=== PATIENT | female | born 1955 | race Two or more races ===

== ENCOUNTER 2020-11-21 06:30 | Inpatient (IN) | payer MEDICARE, MEDICAID ==
[~2020-11-21] VITALS: Ht 157.5 cm; Wt 51.3 kg
[2020-11-21] VITALS (12 sets, daily range): BP systolic 125–172; BP diastolic 72–100
[2020-11-21] MEDS ORDERED: PROPOFOL 1,000 MG/100 ML VIAL As Ordered ONE ×2 (06:34→11:04)
[2020-11-21] MEDS ORDERED: MAGNESIUM SULFATE IN WATER 2GM 50ML BAG (40MG/ML) (FOR ER ONLY) As Ordered ONE (06:38)
[2020-11-21] MEDS ORDERED: ETOMIDATE INJ 20MG/10ML VIAL IV ONE (06:45)
[2020-11-21] MEDS ORDERED: SUCCINYLCHOLINE INJ 200 MG/10 ML VIAL (J0330) IV ONE (06:45)
[2020-11-21] MEDS: MAG SULF 1GM/100ML (MAG RUN) 1 GM in IV 1 EA IV SCH ×2 (07:00→07:45)
[2020-11-21 07:01] LABS: HEMATOCRIT 44.8 % (36.0-47.0); HEMOGLOBIN 13.9 g/dl (12.0-15.5); MEAN CORPUSCULAR HEMOGLOBIN 28.6 pg (27.0-33.0); MEAN CORPUSCULAR VOLUME 92.2 fl (80.0-96.0); PLATELET COUNT, AUTOMATED 367 10^3/uL (150-450); RED BLOOD COUNT 4.86 10^6/uL (4.00-5.40)
[2020-11-21 07:03] LABS: WHITE BLOOD COUNT 16.4 10^3/uL (4.0-10.0)
[2020-11-21] MEDS ORDERED: COMBIVENT RESPIMAT 100-20MCG INHALER 4GM INH ONE (07:05)
--- NOTE | 2020-11-21 07:13 | ECGEPIP ---
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
[2020-11-21 07:29] LABS: ATYPICAL LYMPH 12 % (0-5); EOSINOPHILS 5 % (0-3); LYMPHOCYTES 51 % (16-44); MONOCYTES 4 % (0-5); NEUTROPHILS 28 % (28-66)
[2020-11-21 07:30] LABS: ANISOCYTOSIS 1+; OVALOCYTES 1+; PLATELET ESTIMATE INCREASED (NORMAL); POIKILOCYTOSIS 1+
[2020-11-21 07:45] LABS: INR 1.02; PROTHROMBIN TIME 13.8 SECONDS (12.7-14.5)
[2020-11-21] MEDS: IPRATROPIUM 0.02% SOLN 0.5MG 2.5ML NEB NEB SCH ×4 (08:00→19:34)
[2020-11-21] MEDS: ALBUTEROL SULFATE 2.5 MG/0.5 ML INH NEB SOLN NEB SCH ×4 (08:00→19:33)
[2020-11-21] MEDS ORDERED: ISOVUE-370 76% 100ML VIAL As Ordered ONE (08:08)
--- NOTE | 2020-11-21 08:20 | REP ---
INDICATION: resp distress. COMPARISON: comparison chest x-ray June 20, 2018. TECHNIQUE: Portable upright AP chest radiograph. FINDINGS: Patient is status post extensive cervical spine fusion. A nasogastric tube is seen in place coursing into the distal stomach. Lower lumbar spine fusion hardware is also visible. EKG electrodes are seen. Endotracheal tube is seen in good position at the level of the transverse aorta. There is diffuse interstitial lung disease most compatible with fibrosis. The the interstitial markings are more prominent than on the 2019 prior study and some component of edema is difficult to exclude. The heart does not appear enlarged however. Pulmonary vasculature is not increased. No pleural effusion is seen. IMPRESSION: Endotracheal and nasogastric tubes in place. Diffuse interstitial lung disease, fibrosis versus edema. No focal infiltrate. <Electronically signed by Duncan Perez > 11/21/20 [id number]
--- NOTE | 2020-11-21 08:49 | REP ---
INDICATION: altered mental status. COMPARISON: Comparison CT study of the cervical spine is from November 27, 2012. TECHNIQUE: Helical scanning is acquired and overlapping 2 mm high resolution axial images were generated and reviewed at bone and soft tissue window settings. Coronal and sagittal multiplanar re-formations images are generated. FINDINGS: Patient is status post extensive cervical spine fusion. Multilevel cervical spine laminectomy. Fusion hardware is visible bilaterally and dorsally at each level from C2 to the 5th thoracic level. Ventral discectomy and fusion plating is seen across the C3-4 C4-5 C5-6 and C6-7 discs. These findings are unchanged. The patient has james tracheal and nasogastric tubes in place. The prevertebral soft tissues are otherwise unremarkable. The lung apices show thickening of the interlobular septa consistent with interstitial edema or interstitial lung disease. There is no evidence of fracture or traumatic subluxation. There is considerable spray artifact from the metallic components of the fusion hardware. IMPRESSION: Multilevel ventral cervical spine fusion, C3 through C7. Dorsal cervicothoracic fusion bilaterally C2 through T5. Cervical laminectomies at each level from C3 through C7. No traumatic abnormality seen. <Electronically signed by Duncan Perez > 11/21/20 0815
--- NOTE | 2020-11-21 08:49 | REP ---
INDICATION: altered mental status. COMPARISON: None. TECHNIQUE: CT brain performed in the axial plane. Coronal reconstruction images are performed. FINDINGS: There is mild atrophy. There is no midline shift or mass effect. Mild bilateral patchy hypodensities are seen in the periventricular white matter bilaterally likely representing chronic small vessel ischemic changes/gliosis. There is no acute intracranial hemorrhage or extra-axial fluid collection. Vascular calcifications are seen in the carotid siphons. The visualized paranasal sinuses and the mastoid air cells are well aerated with no abnormal opacification. IMPRESSION: Mild atrophy and probable chronic periventricular small vessel ischemic change/gliosis. No acute intracranial hemorrhage, midline shift or mass effect. <Electronically signed by Travon Salas > 11/21/20 [id number]
--- NOTE | 2020-11-21 08:59 | REP ---
INDICATION: altered mental status/hypoxia. COMPARISON: Comparison chest CT study May 15, 2019. TECHNIQUE: Contrast dose: 75 ML of Isovue [address] technique: Helical scanning is acquired and overlapping 1.5 mm and contiguous 3 mm axial images are reformatted. In addition, maximum intensity projection and multiplanar re-formation images are generated in sagittal and coronal imaging projections. FINDINGS: There is good opacification in the pulmonary arterial tree. There is no evidence of vessel cut off or filling defect to suggest pulmonary embolus. Homogeneous opacity is seen in the thoracic aorta. There is no evidence of aneurysm or dissection. There is no evidence of pleural or pericardial effusion. No hilar or mediastinal mass or adenopathy is observed. Lung window settings demonstrate scattered granulomatous pulmonary parenchymal calcifications. Dependent subsegmental atelectatic changes are seen in the lower lobes posteriorly and bilaterally. There is a diffuse new pattern of interstitial edema with smooth thickening of the interlobular septi throughout. There is peribronchial thickening diffusely as well. Mild fissural thickening is seen in the major fissure. These changes are new when compared with the May 15, 2019 study. They are most consistent with diffuse interstitial edema. There are 2 ill-defined nodular opacities in the left upper lobe of uncertain significance. There is mild four-chamber cardiomegaly. The hepatic segment of the IVC a reflux is with contrast opacified blood and there is some in the hepatic veins consistent with some right heart dysfunction. There is a very small amount of pleural fluid present bilaterally. In the upper abdomen, there are 2 small low-density lesions in the spleen measuring 1.2 and 1.5 cm in greatest diameter. One of these is visible in retrospect on the 2019 study. These may be small hemangiomas. Adrenal glands are normal. No liver mass lesion is apparent. The patient is status post cervicothoracic fusion with extensive hardware. Endotracheal tube is in good position. Nasogastric tube enters the left upper quadrant. IMPRESSION: No CT evidence of pulmonary embolus. Diffuse moderate interstitial edema pattern, mild four-chamber cardiomegaly and findings consistent with right heart dysfunction. Question CHF. Two small left upper lobe sub cm ill-defined nodules. <Electronically signed by Duncan Perez > 11/21/20 0811
[2020-11-21] MEDS ORDERED: ASPIRIN 81MG ENTERIC TABLET XX SCH (09:00)
[2020-11-21] MEDS ORDERED: lisinopriL 40 MG TAB NG SCH (09:00)
[2020-11-21] MEDS: propofoL 1,000 MG in IV 1 EA IV SCH ×3 (09:25→23:18)
[2020-11-21 09:45] LABS: BILIRUBIN,DIRECT 0.2 MG/DL (0.0-0.2); BILIRUBIN,TOTAL 0.6 MG/DL (0.2-1.0); CK-MB VALUE MASS 5.1 NG/ML (<3.6); GLOMERULAR FILTRATION RATE 59.1 (>45); MB/CK RELATIVE INDEX 3.49 (< OR =4); POTASSIUM SERUM 3.8 MEQ/L (3.5-5.1); THYROID STIMULATING HORMONE 0.746 uIU/ML (0.358-3.740); THYROXINE (T4) 9.5 UG/DL (4.5-12.0); TOTAL PROTEIN 6.1 GM/DL (6.4-8.2); TROPONIN I 0.51 NG/ML (< 0.10)
[2020-11-21] MEDS ORDERED: GABA-1171 PO (10:11)
[2020-11-21] MEDS ORDERED: FLUTISP NARES (10:11)
[2020-11-21] MEDS ORDERED: FOLI1TAB11 PO (10:11)
[2020-11-21] MEDS ORDERED: ADVA230A INH (10:11)
[2020-11-21] MEDS ORDERED: OXYC20TA2 PO (10:11)
[2020-11-21] MEDS ORDERED: TOPR25TA PO ×2 (10:11→11:14)
[2020-11-21] MEDS ORDERED: INCR1INH INH (10:11)
[2020-11-21] MEDS ORDERED: CLAR10CA3 PO (10:11)
[2020-11-21] MEDS ORDERED: ATOR1TAB21 PO (10:11)
[2020-11-21] MEDS ORDERED: LEXA1TAB PO (10:11)
[2020-11-21] MEDS ORDERED: LISI40TA4 PO (10:11)
[2020-11-21] MEDS ORDERED: POTA1TAB14 PO (10:11)
[2020-11-21] MEDS ORDERED: OMEP40CA4 PO (10:11)
[2020-11-21] MEDS ORDERED: LORA1TAB4 PO (10:11)
[2020-11-21] MEDS ORDERED: CLOP75TA2 PO (10:11)
[2020-11-21] MEDS ORDERED: AMLO1TAB24 PO (10:11)
[2020-11-21] MEDS ORDERED: VARE1TA PO (10:11)
[2020-11-21] MEDS ORDERED: PROAAER10 INH (10:11)
[2020-11-21] MEDS ORDERED: CHAN1PAK13 PO (11:14)
[2020-11-21] MEDS ORDERED: C-101TAB3 PO (11:14)
[2020-11-21] MEDS ORDERED: MAGN500T6 PO (11:14)
[2020-11-21] MEDS ORDERED: ASPI81TA26 PO (11:14)
[2020-11-21] MEDS ORDERED: CALC600T60 PO (11:17)
[2020-11-21] MEDS ORDERED: EXCETAB33 PO (11:17)
[2020-11-21] MEDS ORDERED: ONDA-83 PO (11:17)
[2020-11-21] MEDS ORDERED: VITA200021 PO (11:17)
[2020-11-21] MEDS ORDERED: HOME MED LIST COMPLETE! XX SCH (11:20)
[2020-11-21] MEDS ORDERED: LEXA5TAB13 PO (11:20)
--- NOTE | 2020-11-21 11:24 | HPEPDOC ---
[facility] Medical History & Physical Date of Admission Nov 21, 2020 Date of Service: Nov 21, 2020 Other Provider MOSES Fung Attending Physician: LUISITO JOHNSON MD History and Physical CHIEF COMPLAINT: Shortness of breath HISTORY OF PRESENT ILLNESS: This is a 65-year-old female with history of stress- induced cardiomyopathy, hypertension, hyperlipidemia, mild COPD, prior tobacco abuse, depression, chronic hypoxic respiratory failure on home oxygen who was brought into the EMS for shortness of breath. Patient is currently living with her son. Per her daughter report, while her son was out, patient call EMS around 4:30 in the morning complaining of shortness of breath. Upon arrival to the emergency department, patient was found to be profoundly hypoxic and altered. ABG with large AA gradient. Therefore, patient was emergently intubated in the emergency department. No other history was able to be obtained other than collateral from her daughter and records faxed from [facility]. Per daughter, patient has multiple recurrent hospital admission for cardiac and pulmonary issues. Her last hospital admission was back in May or June of this year. She did have stress induced cardiomyopathy back in Mar 2013. She did have a second presentation with stress-induced cardiomyopathy back in May 2019 in the setting of respiratory distress. She did have a subsequent cardiac catheterization in Jun 2019 which revealed normal clean coronaries with wall motion abnormality typical of stress-induced cardiomyopathy (apical ballooning). She did have a subsequent repeat echocardiogram done in Aug 2019 which show recovery of left ventricular ejection fraction with normal functioning left ventricle. Patient was kept on beta-braden, GENTRY inhibitor, Lasix 40 mg as needed with strict salt intake. Echocardiogram done back in Aug 2019 showed left ventricular ejection fraction of 50 to 55% with grade 1 diastolic dysfunction. There is evidence of mild to moderate aortic insufficiency. CVP is normal. Inferior vena cava collapsibility is more than 50%. There is mild mitral regurgitation with intact tricuspid valve. Previous spirometry with FVC 45%, FEV1 34% with normal FEV1 to FVC ratio. Upon arrival to the emergency department, she has slight leukocytosis with no bandemia. Basic metabolic panel are essentially within normal limits. proBNP is 1000. Lactic acid was elevated. Troponin was slightly elevated at 0.5. EKG with no ST-T wave changes other than LVH. There is no evidence of LBBB. Chest x-ray with increased cephalization of the vasculature. CT scan of the head show chronic vessel disease with no evidence of intracranial hemorrhage or subacute stroke. CT C-spine with multiple hardwares but no evidence of fracture. CT of the chest with angiography showed no evidence of acute pulmonary embolism but evidence of contrast reflux into the IVC. However there is evidence of dependent atelectasis in the lower lobe as well as increased markings of interlobular septa. Patient will be admitted to ICU for further management. PAST MEDICAL HISTORY: 1. Stress induced cardiomyopathy. 2. Hypertension. 3. Hyperlipidemia. 4. Prior tobacco smoker quit smoking back in June of this year 2020 5. Mild COPD 6. Scoliosis PAST SURGICAL HISTORY: 1. Appendectomy. 2. Cardiac catheterization in Jun 2019. 3. Colonoscopy in Aug 2014. 4. Hysterectomy 5. C-spine surgery with hardware placement 6. Dental extraction SOCIAL HISTORY: Patient was a prior smoker who smoke for [id number] history. She quit smoking back in May 2019. She had no history of alcohol use or illicit drug use. FAMILY HISTORY: Family history of lung cancer in her mother. Family history of myocardial infarction in her father who had VT at age 48. ALLERGIES: Please see below. REVIEW OF SYSTEMS: Review of system cannot be done as patient is currently intubated and sedated. HOME MEDICATIONS: Please see below. PHYSICAL EXAMINATION: VITAL SIGNS: Please see vital signs below GENERAL APPEARANCE: Patient is currently sedated and does not appear to be in any acute distress. HEENT: JVD. No cervical adenopathy CARDIOVASCULAR: S1, S2, S3 with no S4. Mild midsystolic murmur best heard in apical area. LUNGS: Bilateral rales. ABDOMEN: Soft with hypoactive bowel sounds. MUSCULOSKELETAL: No evidence of joint effusion or joint swelling. EXTREMITIES: Very minimal pitting edema of the lower extremity. No clubbing of the fingers NEUROLOGICAL: Cannot be assessed. PSYCHIATRIC: Cannot be assessed. LABORATORY DATA: See below. MICROBIOLOGY: Please see below. ASSESSMENT: This is a 65-year-old female with history of stress-induced cardiomyopathy, hypertension, hyperlipidemia, mild COPD, prior tobacco abuse, depression, chronic hypoxic respiratory failure on home oxygen who was brought into the EMS for shortness of breath. #Acute hypoxic respiratory failure secondary to cardiogenic pulmonary edema -Currently intubated on mechanical ventilator setting respiratory rate 18, tidal volume 320 mL, PEEP 7, FiO2 45%. Dramatic improvement of her gas exchange immediately after positive pressure ventilation which strongly indicate that this is a cardiogenic pulmonary edema. #Cardiogenic pulmonary edema -Lasix drip 5 mg/h started. Resume home GENTRY inhibitor and beta-braden. -Repeat echocardiogram ordered. Bedside echo/sonogram show severely depressed left ventricular function with mild to moderate mitral regurgitation. Left ventricule is globally hypokinetic. IVC is massively dilated. -Strict monitoring of ins and outs and electrolytes with ongoing diuresis. #Hypoxic encephalopathy -Intubated for airway protection. Will perform daily sedation holiday. #Lactic acidosis -Likely secondary to hypoxia. Will trend until lactate normalized. #Elevated troponin with no significant EKG change -Likely demand given no history of coronary artery disease on cardiac catheterization done little over a year ago. Repeat echo order. We will trend troponin. She has been restarted back on aspirin, beta-braden, Lipitor. #Hypertension, hyperlipidemia, mild COPD not in exacerbation, depression -Restarted on her home medications. DVT prophylaxis: Heparin subcutaneous GI prophylaxis: Pantoprazole Diet: N.p.o. Critical care time excluding procedures 70 minutes. Vital Signs Vital Signs Date Time Temp Pulse Resp B/P (MAP) Pulse Ox O2 Delivery O2 Flow Rate FiO2 11/21/20 09:20 117/73 (88) 11/21/20 09:15 98.1 91 18 96 Ventilator 15.0 60 Laboratory Data Labs 24H Laboratory Tests 2 11/21/20 06:40: POC Glucose (Misc Panel) 305H, POC Sodium (Misc Panel) 139, POC Potassium (Misc Panel) 4.1, POC Chloride (Misc Panel) 101, POC Total CO2 (Misc Panel) 26.0, POC Blood Urea Nitrogen (Misc Panel 13, POC Ionized Calcium (Misc Panel) 4.5, POC Creatinine (Misc Panel) 1.2, POC Hematocrit (Misc Panel) 48.0 11/21/20 06:47: POC Lactate (Misc Panel) 4.41*H 11/21/20 06:53: Neutrophils (%) (Auto) , Nucleated Red Blood Cells % (auto) 0.0, Neutrophils 28, Lymphocytes (Manual) 51H, Monocytes (Manual) 4, Eosinophils (Manual) 5H, Atypical Lymphocytes 12H, Poikilocytosis 1+, Anisocytosis 1+, Ovalocytes 1+, Platelet Estimate INCREASED, Prothrombin Time 13.8, Prothromb Time International Ratio 1.02, Lactic Acid Level 4.8*H 11/21/20 06:54: POC Saturated Percent O2 (Misc) 80L 11/21/20 07:02: POC pH (Misc Panel) 7.350, POC Base Excess (Misc Panel) 1.0, POC Saturated Percent O2 (Misc) 94L, POC pO2 (Misc Panel) 76.0L, POC pCO2 (Misc Panel) 48.9H, POC HCO3 (Misc Panel) 27.0H, POC Total CO2 (Misc Panel) 28.0H 11/21/20 07:52: POC pH (Misc Panel) 7.373, POC Base Excess (Misc Panel) 2.0, POC Saturated Percent O2 (Misc) 83L, POC pO2 (Misc Panel) 49.0*L, POC pCO2 (Misc Panel) 47.2H, POC HCO3 (Misc Panel) 27.5H, POC Total CO2 (Misc Panel) 29.0H 11/21/20 07:57: POC Total CO2 (Misc Panel) 28.0H, POC Glucose (Misc Panel) 222H, POC Sodium (Misc Panel) 132L, POC Potassium (Misc Panel) 4.5, POC Chloride (Misc Panel) 100, POC Blood Urea Nitrogen (Misc Panel 13, POC Ionized Calcium (Misc Panel) 4.0L, POC Creatinine (Misc Panel) 1.2, POC Hematocrit (Misc Panel) 41.0 11/21/20 09:08: Anion Gap 5L, Glomerular Filtration Rate 59.1, Calcium Level 8.0L, Total Bilirubin 0.6, Direct Bilirubin 0.2, Aspartate Amino Transf (AST/SGOT) 26, Alanine Aminotransferase (ALT/SGPT) 21, Alkaline Phosphatase 109, Total Creatine Kinase 146, Creatine Kinase MB 5.1H, Creatine Kinase MB Relative Index 3.49, Troponin I 0.51H, GJ-Lyd-T-Type Natriuretic Peptide 1055H, Total Protein 6.1L, Albumin 3.0L, Albumin/Globulin Ratio 1.0L, Thyroid Stimulating Hormone (TSH) 0 .746, Thyroxine (T4) 9.5 CBC/BMP Laboratory Tests 11/21/20 06:53 11/21/20 09:08 Microbiology Microbiology 11/21/20 Respiratory Virus Panel (PCR) ([facility]) - Final, Complete 11/21/20 Blood Culture, Received Pending 11/21/20 Blood Culture, Received Pending Home Medications Scheduled Amlodipine Besylate (Amlodipine Besylate) 5 Mg Tablet, 2.5 MG PO DAILY Atorvastatin Calcium (Atorvastatin Calcium) 20 Mg Tablet, 20 MG PO DAILY Clopidogrel Bisulfate (Clopidogrel) 75 Mg Tablet, 75 MG PO DAILY Escitalopram Oxalate (Lexapro) 10 Mg Tablet, 10 MG PO DAILY Fluticasone Propion/Salmeterol (Advair Hfa 230-21 Mcg Inhaler) 12 Gm Hfa.aer.ad, 2 PUFF INH BID Fluticasone Propionate (Fluticasone Propionate) 16 Gm [place].susp, 1 SPRAY NARES DAILY Folic Acid (Folic Acid) 1 Mg Tablet, 1 MG PO DAILY Gabapentin (Gabapentin) 100 Mg Capsule, 100 MG PO TID Lisinopril (Lisinopril) 40 Mg Tablet, 40 MG PO DAILY Loratadine (Claritin) 10 Mg Capsule, 10 MG PO DAILY Metoprolol Succinate (Toprol Xl) 25 Mg Tab.er.24h, 50 MG PO DAILY Omeprazole (Omeprazole) 40 Mg Capsule.dr, 40 MG PO BID Potassium Chloride (Potassium Chloride) 20 Meq Tablet.er, 20 MEQ PO DAILY Umeclidinium [place] (Incruse Ellipta) 62.5 Mcg Blst.w.dev, 1 PUFF INH DAILY Scheduled PRN Albuterol Sulfate (Proair Hfa) 8.5 Gm Hfa.aer.ad, 2 PUFF INH QID PRN for SHORTNESS OF BREATH Lorazepam (Lorazepam) 1 Mg Tablet, 1 MG PO QHS PRN for INSOMNIA Oxycodone Hcl (Oxycodone HCl) 20 Mg Tablet, 20 MG PO Q4H PRN for PAIN LEVEL 5-10 Allergies Coded Allergies: Cephalosporins (Verified Allergy, Intermediate, 11/21/20) Penicillins (Verified Allergy, Intermediate, 11/21/20) buspirone (Verified Allergy, Intermediate, 11/21/20) codeine (Verified Allergy, Intermediate, 11/21/20) varenicline (Verified Allergy, Intermediate, 11/21/20) A-FIB/CHADSVASC A-FIB History Current/History of A-Fib/PAF?: No LUISITO JOHNSON MD Nov 21, 2020 11:24
[2020-11-21] MEDS: CHLORHEXIDINE GLUCONATE 0.12 % 15ML UDC (PERIDEX ORAL RINSE) MT SCH ×2 (13:14→21:10)
[2020-11-21] MEDS ORDERED: FUROSEMIDE injection 250 MG in D5W 225 ML IV SCH (14:00)
[2020-11-21] MEDS: ASPIRIN 81 MG CHEW TABLET NG SCH (14:01)
[2020-11-21] MEDS: PANTOPRAZOLE 40MG VIAL (C9113 PER 1) IV SCH (14:02)
[2020-11-21] MEDS: CLOPIDOGREL 75 MG TAB NG SCH (14:02)
[2020-11-21] MEDS: HEPARIN SOD (PORCINE) 5000UNITS/ML 1ML VIAL/SYRINGE SC SCH ×2 (14:02→22:05)
[2020-11-21] MEDS ORDERED: SUCCINYLCHOLINE 100 MG/5 ML SYRINGE (J0330) ONE (14:15)
[2020-11-21] MEDS ORDERED: ETOMIDATE INJ 20MG/10ML VIAL ONE (14:15)
[2020-11-21 17:38] LABS: BLOOD UREA NITROGEN 10 MG/DL (7-18); CALCIUM LEVEL 8.9 MG/DL (8.8-10.2); CARBON DIOXIDE LEVEL 25 MEQ/L (21-32); CHLORIDE LEVEL 103 MEQ/L (98-107); CREATININE FOR GFR 0.77 MG/DL (0.55-1.30); GLOMERULAR FILTRATION RATE > 60.0 (>45); GLUCOSE, FASTING 145 MG/DL (70-100); MAGNESIUM LEVEL 2.2 MG/DL (1.8-2.4); POTASSIUM SERUM 3.3 MEQ/L (3.5-5.1); SODIUM LEVEL 138 MEQ/L (136-145)
[2020-11-21] MEDS ORDERED: KCL 20MEQ IN 100ML SWI (KRUN) 20 MEQ in IV 1 EA IV ONE ×2 (17:40)
[2020-11-21] MEDS ORDERED: POTASSIUM CHLORIDE 10% LIQ 20 MEQ/15 ML UDC NG ONE (17:40)
[2020-11-21] MEDS: KCL 10MEQ/100ML SWI (KRUN) 10 MEQ in IV 1 EA IV SCH ×2 (18:36→19:46)
[2020-11-21] MEDS ORDERED: ATORVASTATIN 20 MG TAB NG SCH (21:00)
[2020-11-21] MEDS: ESCITALOPRAM OXALATE 5MG TABLET (LEXAPRO) NG SCH (21:10)
[2020-11-21] MEDS: METOPROLOL TART 50 MG TAB NG SCH (21:12)
[2020-11-22] VITALS (30 sets, daily range): BP systolic 97–160; BP diastolic 52–92
[2020-11-22 00:57] LABS: BLOOD UREA NITROGEN 13 MG/DL (7-18); CALCIUM LEVEL 9.4 MG/DL (8.8-10.2); CARBON DIOXIDE LEVEL 24 MEQ/L (21-32); CHLORIDE LEVEL 98 MEQ/L (98-107); CREATININE FOR GFR 0.98 MG/DL (0.55-1.30); GLOMERULAR FILTRATION RATE > 60.0 (>45); GLUCOSE, FASTING 176 MG/DL (70-100); MAGNESIUM LEVEL 2.1 MG/DL (1.8-2.4); POTASSIUM SERUM 4.2 MEQ/L (3.5-5.1); SODIUM LEVEL 133 MEQ/L (136-145)
[2020-11-22] MEDS: HEPARIN SOD (PORCINE) 5000UNITS/ML 1ML VIAL/SYRINGE SC SCH (05:55)
[2020-11-22] MEDS: propofoL 1,000 MG in IV 1 EA IV SCH ×4 (05:56→23:12)
[2020-11-22 06:20] LABS: HEMATOCRIT 47.1 % (36.0-47.0); HEMOGLOBIN 15.7 g/dl (12.0-15.5); MEAN CORPUSCULAR HEMOGLOBIN 28.5 pg (27.0-33.0); MEAN CORPUSCULAR HGB CONC 33.3 g/dl (32.0-36.5); MEAN CORPUSCULAR VOLUME 85.5 fl (80.0-96.0); PLATELET COUNT, AUTOMATED 415 10^3/uL (150-450); RED BLOOD COUNT 5.51 10^6/uL (4.00-5.40)
[2020-11-22 06:42] LABS: ATYPICAL LYMPH 5 % (0-5); LYMPHOCYTES 11 % (16-44); MONOCYTES 14 % (0-5); NEUTROPHILS 70 % (28-66)
[2020-11-22 06:43] LABS: PLATELET ESTIMATE NORMAL (NORMAL); POIKILOCYTOSIS 1+
[2020-11-22 06:46] LABS: ALBUMIN 3.8 GM/DL (3.2-5.2); ALT/SGPT 22 U/L (12-78); BLOOD UREA NITROGEN 15 MG/DL (7-18); CALCIUM LEVEL 9.4 MG/DL (8.8-10.2); CARBON DIOXIDE LEVEL 25 MEQ/L (21-32); CHLORIDE LEVEL 97 MEQ/L (98-107); CREATININE FOR GFR 0.89 MG/DL (0.55-1.30); GLOMERULAR FILTRATION RATE > 60.0 (>45); GLUCOSE, FASTING 146 MG/DL (70-100); POTASSIUM SERUM 3.5 MEQ/L (3.5-5.1); SODIUM LEVEL 134 MEQ/L (136-145); TOTAL PROTEIN 7.4 GM/DL (6.4-8.2)
[2020-11-22] MEDS: ALBUTEROL SULFATE 2.5 MG/0.5 ML INH NEB SOLN NEB SCH ×4 (07:20→19:42)
[2020-11-22] MEDS: IPRATROPIUM 0.02% SOLN 0.5MG 2.5ML NEB NEB SCH ×4 (07:21→19:42)
[2020-11-22] MEDS: PANTOPRAZOLE 40MG VIAL (C9113 PER 1) IV SCH (08:24)
[2020-11-22] MEDS: ATORVASTATIN 20 MG TAB PO SCH (08:25)
[2020-11-22] MEDS: CLOPIDOGREL 75 MG TAB NG SCH (08:25)
[2020-11-22] MEDS: CHLORHEXIDINE GLUCONATE 0.12 % 15ML UDC (PERIDEX ORAL RINSE) MT SCH ×2 (08:25→20:28)
[2020-11-22] MEDS: METOPROLOL TART 50 MG TAB NG SCH (08:26)
[2020-11-22] MEDS: ASPIRIN 81 MG CHEW TABLET NG SCH (08:26)
[2020-11-22] MEDS: MIDAZOLAM INJ 2MG/2ML VIAL (J2250 PER 1MG) IV PRN ×4 (08:29→22:30)
[2020-11-22] MEDS ORDERED: amLODIPine 5 MG TAB PO SCH (09:00)
[2020-11-22] MEDS ORDERED: ENOXAPARIN 80MG/0.8ML SYRINGE (J1650 PER 10MG) SC SCH (10:00)
--- NOTE | 2020-11-22 11:00 | ECHO ---
ECHOCARDIOGRAM DATE OF PROCEDURE: 11/21/2020 Age: 65 Gender: Female REFERRING PHYSICIAN: Dr. Nathan Clark PATIENT LOCATION: Room 3222 REASON FOR THE ECHOCARDIOGRAM: Heart failure MEASUREMENTS: IVS 1.1 cm LV 4.2 cm LVPW 1.1 cm DIANNA 3.5 cm Aorta 2.5 cm IVC 1.8 cm DOPPLER MEASUREMENT Peak velocity across the aortic valve 1.7 m/s Peak velocity across the LVOT 0.99 m/s Peak gradient across the aortic valve 11 mmHg Mean gradient across the aortic valve 5 mmHg Mitral E 0.89 Mitral A 0.39 with a ratio of 2.5 Maximum tricuspid valve velocity 3.9 m/sec 2D COMMENTS: 1. Subjectively mildly dilated left ventricle with severe global hypokinesis. The estimated left ventricular systolic ejection fraction is 20-25%. 2. The left atrium appeared to be mildly enlarged as well as the right atrium. Normal right ventricle. 3. The atrial septum appeared to be normal without evidence of defect or shunt. 4. Normal aortic root. 5. No pericardial effusion seen. 6. Mildly calcified aortic valve with normal leaflet excursion. Mildly calcified mitral annulus with normal anterior mitral valve leaflet motion. Normal tricuspid valve and pulmonic valve. The proximal pulmonary artery branches were not well visualized. 7. The inferior vena cava is normal in size, central venous pressure maybe normal. DOPPLER: It detects mild to moderate aortic regurgitation, moderate to severe mitral regurgitation and moderately severe tricuspid regurgitation. The calculated pulmonary artery systolic pressure varies between 60-70 mmHg. Abnormal relaxation pattern was noted across the mitral valve annulus, consistent with features of grade 2 left ventricular diastolic dysfunction. IMPRESSION: 1. Severe global left ventricular systolic dysfunction with global hypokinesis. There are some features of grade 2 left ventricular diastolic dysfunction, left ventricular end diastolic pressure might be elevated. 3. Aortic valve sclerosis with mild to moderate aortic regurgitation. 4. Mitral annulus calcification with moderately severe mitral regurgitation. Specifically the left atrium appeared to be mildly enlarged. 5. Moderately severe tricuspid regurgitation with moderately severe pulmonary hypertension. Specifically the right atrium appeared to be mildly enlarged. 7. Global longitudinal strain was calculated at -10.8%. 8. Negative Bubble study for intracardiac shunt. MTDD
--- NOTE | 2020-11-22 11:41 | IPNPDOC ---
Subjective Date Seen The patient was seen on 11/22/20. Subjective Chief Complaint/HPI Patient remains intubated. 1 coming off sedation, patient tracks people with her eyes and move 4 extremities but she does not follow any purposeful command. General: Reports: ROS Unobtainable Objective Physical Examination General Exam: Positive: No Acute Distress Eye Exam: Positive: Conjunctiva & lids normal; Negative: Sclera icteric ENT Exam: Positive: Atraumatic Neck Exam: Positive: Supple, JVD Chest Exam: Positive: Normal air movement, Rales Heart Exam: Positive: Tachycardic, Murmurs Abdomen Exam: Positive: Normal bowel sounds, Soft; Negative: Tenderness Extremity Exam: Negative: Clubbing, Cyanosis, Edema Skin Exam: Positive: Nl turgor and temperature; Negative: Rash Assessment /Plan Assessment This is a 65-year-old female with history of stress-induced cardiomyopathy, hypertension, hyperlipidemia, mild COPD, prior tobacco abuse, depression, chronic hypoxic respiratory failure on home oxygen who was brought into the EMS for shortness of breath. Plan/VTE VTE Prophylaxis Ordered?: Yes Plan #Acute hypoxic respiratory failure secondary to cardiogenic pulmonary edema -Currently intubated on mechanical ventilator setting respiratory rate 18, tidal volume 320 mL, PEEP 7, FiO2 21%. Dramatic improvement of her gas exchange immediately after positive pressure ventilation which strongly indicate that this is a cardiogenic pulmonary edema. #Cardiogenic pulmonary edema -She was previously on Lasix drip with good response to diuresis. She may 3 L over 24 hours. Aggressive electrolyte repletion. We will hold off further diuresis today as her gas exchange is very good. #Hypoxic encephalopathy -Intubated for airway protection. Will perform daily sedation holiday. #Lactic acidosis -Likely secondary to hypoxia. Lactate has normalized. #Type II [place] -Likely demand given no history of coronary artery disease on cardiac catheterization done little over a year ago. Repeat echo with estimated EF of 20 to 25%. There is a mild to moderate MR and TR. There is also significant A I. We will continue with aspirin, Lipitor, beta-braden. Dose of metoprolol will be increased if her blood pressure can tolerate. She will be started on Entresto in the near future. We will continue to trend troponin. We will continue with medical management. #Hypertension, hyperlipidemia, mild COPD not in exacerbation, depression -Restarted on her home medications. #Hypokalemia secondary to diuresis -Repleted DVT prophylaxis: Enoxaparin subcutaneous GI prophylaxis: Pantoprazole Diet: N.p.o. Critical care time excluding procedures 45 minutes. Disposition continue icu care. VS, I&O, 24H, Fishbone Vital Signs/I&O Vital Signs Date Time Temp Pulse Resp B/P (MAP) Pulse Ox O2 Delivery O2 Flow Rate FiO2 11/22/20 10:00 91 28 102/52 (69) 95 Ventilator 21 11/22/20 08:00 98.7 11/22/20 00:00 30.0 I&O- Last 24 Hours up to 6 AM 11/22/20 06:00 Intake Total 767.0 ml Output Total 3370 ml Balance -2603.0 ml Laboratory Data 24H LABS Laboratory Tests 2 11/21/20 11:49: Lactic Acid Level 1.6, Troponin I 0.65#H 11/21/20 12:46: Lactic Acid Followup at 4 Hours 1.3 11/21/20 16:52: Anion Gap 10, Glomerular Filtration Rate > 60.0, Calcium Level 8.9, Magnesium Level 2.2 11/22/20 00:10: Anion Gap 11, Glomerular Filtration Rate > 60.0, Calcium Level 9.4, Magnesium Level 2.1 11/22/20 04:58: Neutrophils (%) (Auto) , Nucleated Red Blood Cells % (auto) 0.0, Neutrophils 70H, Lymphocytes (Manual) 11L, Monocytes (Manual) 14H, Atypical Lymphocytes 5, Poikilocytosis 1+, Platelet Estimate NORMAL, Anion Gap 12, Glomerular Filtration Rate > 60.0, Calcium Level 9.4, Total Bilirubin 1.0#, Aspartate Amino Transf (AST/SGOT) 37, Alanine Aminotransferase (ALT/SGPT) 22, Alkaline Phosphatase 116, Troponin I 2.31#*H, Total Protein 7.4#, Albumin 3.8#, Albumin/Globulin Ratio 1.1L CBC/BMP Laboratory Tests 11/21/20 16:52 11/22/20 00:10 11/22/20 04:58 Microbiology Microbiology 11/21/20 Respiratory Virus Panel (PCR) ([facility]) - Final, Complete 11/21/20 Blood Culture - Preliminary, Resulted No growth after 24 hours . All specim... 11/21/20 Blood Culture - Preliminary, Resulted No growth after 24 hours . All specim... LUISITO JOHNSON MD Nov 22, 2020 11:41
[2020-11-22] MEDS ORDERED: METOPROLOL TART 25 MG TABLET FT ONE (12:45)
--- NOTE | 2020-11-22 12:56 | IPN ---
PROGRESS NOTE DATE: 11/22/2020 TIME: 11:[address] Almaraz covering for the cardiology service of Dr. Dale Davies (weekend coverage). The patient has been seen in consultation earlier this week by Dr. Dale Davies. At the present time, Dr. Davies's written consult is not currently available in the electronic medical record for my review. Neither is the patient's echocardiogram, Doppler report available in the current electronic medical record for my review. The patient is currently intubated, sedated and ventilated and no history could be obtained from the patient for that reason. History was obtained from the patient's current EMR. This 65-year-old woman is known to have takotsubo cardiomyopathy, systemic hypertension, hyperlipidemia, COPD, prior cigarette smoking, chronic hypoxic respiratory failure on home O2. She was brought to the emergency room by EMS 11/21/2020 with shortness of breath and was in respiratory failure. She was intubated and ventilated and placed on ICU status. Her ECG showed some nonspecific ST abnormalities and sinus tachycardia, 11/21/2020 at 6:33 a.m. Serial troponins were ordered. Her initial troponin was slightly elevated at 0.5. Troponin I this morning was 2.31. I was called by the nurse looking after the patient that the patient's troponin I was 2.31 this morning and that the computer read of the electrocardiogram had reported a septal infarct, age undetermined, a T wave abnormality, consider inferior wall ischemia. I was therefore asked by the nurse to be reassess this patient with regards to cardiology care. According to the history of present illness from the patient's current admission, the patient has had multiple recurrent hospitalizations for cardiac and pulmonary issues. She was diagnosed with stress-induced cardiomyopathy March, and had a second presentation of stress-induced cardiomyopathy, May, in the setting of respiratory stress. She had a cardiac catheterization, June, which showed angiographically normal coronary arteries with wall motion abnormality (apical ballooning) consistent with stress-induced cardiomyopathy. She had a repeat echocardiogram, August, showing recovery of LV systolic function. LVEF of 50-55% with grade I LV diastolic dysfunction. At that time, there was also mild-moderate aortic valve regurgitation, mild mitral regurgitation. The patient's current medications in the hospital consist of albuterol nebs, amlodipine 5 mg b.i.d., aspirin 81 mg daily, atorvastatin 80 mg daily, clopidogrel 25 mg daily, Lovenox 50 mg subcu q.12h, Lexapro 5 mg h.s., Atrovent nebulizers q.i.d., metoprolol tartrate 50 mg b.i.d., midazolam as needed for agitation, Protonix 40 mg IV daily, Propofol IV. PHYSICAL EXAMINATION: Unresponsive woman who appears to be normal body weight who is currently intubated and ventilated and sedated. Height 60 inches, weight 51.2 kilograms, BMI 20.6. Presence of orogastric tube and NG tube. Jugular venous pulsations appear to be at 3 cm with the patient supine. Lungs murray were clear with good breath sound intensity with ventilator breaths. No crackles. No wheezes appreciated. Carotids normal in volume and contour and without bruits. First and second heart sounds were normal. No S3, S4, or murmurs appreciated. Assessment for heart sounds are somewhat difficult due to breath sounds and the ventilator. Abdomen was soft, nontender with normal bowel sounds. No peripheral edema. Pedal pulses normal. Electrocardiogram 11/22/2020 at 7:08 a.m. shows sinus tachycardia, nonspecific ST-T abnormalities, LVH by voltages. Overall no significant change in comparison to the EKG 11/21/2020 at 6:33 a.m. Portable upright AP chest x-ray 11/21/2020 was reported to show endotracheal and nasogastric tubes in place. Diffuse interstitial lung disease, fibrosis versus edema. No focal infiltrate. Laboratory work, 11/22/2020 shows WBC 27.0, hemoglobin `5.7. hematocrit 47.1, platelets 415. Laboratory work 11/21/2020 at 9:08 a.m.: CPK 146, CPK-MB 5.1, CPK index 3.49, troponin I 0.51, NT-proBNP 1055, albumin 3.0. Total protein low at 6.1. TSH 0.746, T4 9.5. Laboratory work 11/21/2020 at 11:49 a.m. showed troponin I 0.65. Laboratory work 11/21/2020 at 6:53 a.m. showed lactic acid 4.8. Laboratory work 11/22/2020 at 4:58 a.m.: Sodium 134, potassium 3.5, chloride 97, CO2 25, BUN 15, creatinine 0.89, estimated GFR greater than 60, glucose 146, albumin 3.8, total protein 7.4. Troponin I 2.31. ASSESSMENT AND RECOMMENDATIONS: 1. Recurrent episodes of takotsubo cardiomyopathy, perhaps related to recurrent acute respiratory failure. Awaiting results of the patients' echocardiogram Doppler from this hospitalization to be posted into the EMR. Patient has evidence of heart failure with elevated NT-proBNP. At the moment, she appears to be compensated. Blood pressure this morning was mildly low. Due to mildly low blood pressure, I have discontinued amlodipine. As her blood pressure improves, I would like to advance the dosage of metoprolol. Her last dose of lisinopril was given 11/21/2020 at 1401 hours. If the patient's blood pressure improves off of lisinopril and if her LV systolic function is below 60%, then I would like to introduce Entresto. 2. Type 2 NSTEMI. This patient had previous cardiac catheterization which currently showed normal coronary arteries and findings consistent with takotsubo cardiomyopathy. I believe this patient's small rise in the troponin I is a secondary phenomena rather than coronary disease. As such, I recommend discontinuation of Plavix. I would not send the patient for repeat cardiac catheterization at this point because I believe that she has type II NSTEMI. 3. Systemic retention. Blood pressure is mildly low at present. As noted above, I have discontinued amlodipine. Lisinopril has already been stopped. As her blood pressure improves, my plan is to escalate the dosage of metoprolol and possibly introduce Valsartan (the addition of Entresto). 4. Abnormal ECG. ECG as described above. 5. Prior documentation of mild-moderate aortic regurgitation (nonrheumatic). We are awaiting the patient's echocardiography Doppler report from this hospitalization to be posted into the MR for my review. 6. Heart failure, unspecified. As per takotsubo cardiomyopathy category above.
--- NOTE | 2020-11-22 16:57 | ECGEPIP ---
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 Overall no significant change compared with 11/21/2020. Electronically Signed on 11-22-2020 16:56:31 EDT by Ricco Almaraz
[2020-11-22] MEDS: fentaNYL 100 MCG/2 ML INJECTION (J3010) IV PRN ×2 (17:26→20:31)
[2020-11-22] MEDS: ESCITALOPRAM OXALATE 5MG TABLET (LEXAPRO) NG SCH (20:28)
[2020-11-22] MEDS: METOPROLOL TART 25 MG TABLET GT SCH (20:30)
[2020-11-23] VITALS (77 sets, daily range): BP systolic 75–196; BP diastolic 43–87
[2020-11-23 03:28] LABS: HEMATOCRIT 45.7 % (36.0-47.0); HEMOGLOBIN 15.2 g/dl (12.0-15.5); MEAN CORPUSCULAR HEMOGLOBIN 28.1 pg (27.0-33.0); MEAN CORPUSCULAR HGB CONC 33.3 g/dl (32.0-36.5); MEAN CORPUSCULAR VOLUME 84.5 fl (80.0-96.0); PLATELET COUNT, AUTOMATED 376 10^3/uL (150-450); RED BLOOD COUNT 5.41 10^6/uL (4.00-5.40)
[2020-11-23 03:31] LABS: WHITE BLOOD COUNT 26.2 10^3/uL (4.0-10.0)
[2020-11-23] MEDS: propofoL 1,000 MG in IV 1 EA IV SCH ×3 (04:00→23:09)
[2020-11-23 04:14] LABS: ALBUMIN 3.3 GM/DL (3.2-5.2); ALT/SGPT 18 U/L (12-78); BLOOD UREA NITROGEN 24 MG/DL (7-18); CALCIUM LEVEL 8.5 MG/DL (8.8-10.2); CARBON DIOXIDE LEVEL 25 MEQ/L (21-32); CHLORIDE LEVEL 95 MEQ/L (98-107); CREATININE FOR GFR 0.97 MG/DL (0.55-1.30); GLOMERULAR FILTRATION RATE > 60.0 (>45); GLUCOSE, FASTING 118 MG/DL (70-100); POTASSIUM SERUM 3.7 MEQ/L (3.5-5.1); SODIUM LEVEL 132 MEQ/L (136-145); TOTAL PROTEIN 6.7 GM/DL (6.4-8.2); TROPONIN I 0.99 NG/ML (< 0.10)
[2020-11-23 04:18] LABS: ATYPICAL LYMPH 4 % (0-5); LYMPHOCYTES 13 % (16-44); MONOCYTES 13 % (0-5); NEUTROPHILS 70 % (28-66); PLATELET ESTIMATE NORMAL (NORMAL)
[2020-11-23 04:19] LABS: POIKILOCYTOSIS 1+
[2020-11-23] MEDS: fentaNYL 100 MCG/2 ML INJECTION (J3010) IV PRN ×3 (04:51→15:40)
[2020-11-23] MEDS: IPRATROPIUM 0.02% SOLN 0.5MG 2.5ML NEB NEB SCH ×4 (07:14→19:39)
[2020-11-23] MEDS: ALBUTEROL SULFATE 2.5 MG/0.5 ML INH NEB SOLN NEB SCH ×4 (07:14→19:39)
[2020-11-23] MEDS: CHLORHEXIDINE GLUCONATE 0.12 % 15ML UDC (PERIDEX ORAL RINSE) MT SCH ×2 (08:09→20:39)
[2020-11-23] MEDS: PANTOPRAZOLE 40MG VIAL (C9113 PER 1) IV SCH (08:10)
[2020-11-23] MEDS: ASPIRIN 81 MG CHEW TABLET NG SCH (08:10)
[2020-11-23] MEDS: ENTRESTO 24-26MG TABLET (SACUBITRIL/VALSARTAN) PO SCH ×2 (08:10→21:57)
[2020-11-23] MEDS: ENOXAPARIN 40MG/0.4ML SYRINGE (J1650 PER 10MG) SC SCH (08:10)
[2020-11-23] MEDS: ATORVASTATIN 20 MG TAB PO SCH (08:11)
[2020-11-23] MEDS: METOPROLOL TART 25 MG TABLET GT SCH (08:12)
[2020-11-23] MEDS ORDERED: MILRINONE/DEXTROSE 20 MG in IV 1 EA IV SCH (11:15)
[2020-11-23] MEDS: MIDAZOLAM INJ 2MG/2ML VIAL (J2250 PER 1MG) IV PRN ×5 (11:33→17:52)
[2020-11-23] MEDS ORDERED: NOREPINEPHRINE BITARTRATE 8 MG in D5W 492 ML IV SCH (14:00)
--- NOTE | 2020-11-23 14:41 | IPNPDOC ---
Subjective Date Seen The patient was seen on 11/23/20. Subjective Chief Complaint/HPI Patient remained intubated. While off sedation for many hours, she does not follow any meaningful commands. She opens her eyes, gag and cough and staring blank. General: Reports: ROS Unobtainable Objective Physical Examination General Exam: Positive: No Acute Distress Eye Exam: Positive: Conjunctiva & lids normal; Negative: Sclera icteric ENT Exam: Positive: Atraumatic Neck Exam: Positive: Supple Chest Exam: Positive: Normal air movement, Rales Heart Exam: Positive: Tachycardic, Murmurs Abdomen Exam: Positive: Normal bowel sounds, Soft; Negative: Tenderness Extremity Exam: Negative: Clubbing, Cyanosis, Edema Skin Exam: Positive: Nl turgor and temperature; Negative: Rash Assessment /Plan Assessment This is a 65-year-old female with history of stress-induced cardiomyopathy, hypertension, hyperlipidemia, mild COPD, prior tobacco abuse, depression, chronic hypoxic respiratory failure on home oxygen who was brought into the EMS for shortness of breath. She was intubated for cardiogenic pulmonary edema and admitted to ICU. Plan/VTE VTE Prophylaxis Ordered?: Yes Plan #Acute hypoxic respiratory failure secondary to cardiogenic pulmonary edema -Currently intubated on mechanical ventilator setting respiratory rate 18, tidal volume 320 mL, PEEP 7, FiO2 21%. Dramatic improvement of her gas exchange immediately after positive pressure ventilation which strongly indicate that this is a cardiogenic pulmonary edema. #Cardiogenic pulmonary edema -She was previously on Lasix drip with good response to diuresis. She diuresed 3 L over 24 hours on admission. We will hold off further diuresis today as her gas exchange is very good and she appears euvolemic. #Metabolic encephalopathy encephalopathy -Intubated for airway protection. Daily sedation holiday did not result in her following any meaningful commands. She opens her eyes and stare in blank. Will obtain MRI of the brain as I suspect she may had a CVA. #Lactic acidosis -Likely secondary to hypoxia. Lactate has normalized. #Type II SC -Likely demand given no history of coronary artery disease on cardiac catheterization done little over a year ago. Repeat echo with estimated EF of 20 to 25%. There is a mild to moderate MR and TR. There is also significant AI. We will continue with aspirin, Lipitor, beta-braden. She has been started on Entresto today by cardiology. We will continue with medical management. #Hypertension, hyperlipidemia, mild COPD not in exacerbation, depression -Restarted on her home medications. #Hypokalemia secondary to diuresis -Repleted DVT prophylaxis: Enoxaparin subcutaneous GI prophylaxis: Pantoprazole Diet: Tube feeding with Jevity 1.5 kcal/cc Critical care time excluding procedures is 45 minutes. Disposition Continue ICU care. VS, I&O, 24H, Fishbone Vital Signs/I&O Vital Signs Date Time Temp Pulse Resp B/P (MAP) Pulse Ox O2 Delivery O2 Flow Rate FiO2 11/23/20 13:20 119 34 110/69 (83) 100 Ventilator 21 11/23/20 12:00 98.3 11/22/20 00:00 30.0 I&O- Last 24 Hours up to 6 AM 11/23/20 06:00 Intake Total 730.5 ml Output Total 603 ml Balance 127.5 ml Laboratory Data 24H LABS Laboratory Tests 2 11/22/20 18:17: Troponin I 1.50#H 11/23/20 00:03: Troponin I 1.17#H 11/23/20 02:49: Troponin I 0.99H, Neutrophils (%) (Auto) , Nucleated Red Blood Cells % (auto) 0.0, Neutrophils 70H, Lymphocytes (Manual) 13L, Monocytes (Manual) 13H, Atypical Lymphocytes 4, Poikilocytosis 1+, Platelet Estimate NORMAL, Anion Gap 12, Glomerular Filtration Rate > 60.0, Calcium Level 8.5L, Total Bilirubin 1.0, Aspartate Amino Transf (AST/SGOT) 34, Alanine Aminotransferase (ALT/SGPT) 18, Alkaline Phosphatase 96, Total Protein 6.7, Albumin 3.3, Albumin/Globulin Ratio 1.0L 11/23/20 12:20: Troponin I 0.65#H CBC/BMP Laboratory Tests 11/23/20 02:49 Microbiology Microbiology 11/21/20 Respiratory Virus Panel (PCR) ([facility]) - Final, Complete 11/21/20 Blood Culture - Preliminary, Resulted No Growth after 48 hours. All Specime... 11/21/20 Blood Culture - Preliminary, Resulted No Growth after 48 hours. All Specime... LUISITO JOHNSON MD Nov 23, 2020 14:41
--- NOTE | 2020-11-23 16:00 | REP ---
INDICATION: TLC PLACEMENT. COMPARISON: 11/21/2020. TECHNIQUE: Single portable AP view of the chest was performed. FINDINGS: There is no acute infiltrate or pulmonary edema. Lungs are clear. The heart is not significantly enlarged. The mediastinal silhouette is unremarkable. Metallic fixation is seen in the lower cervical and upper thoracic spine. Endotracheal tube tip is approximately 2.7 cm above the emy. Nasogastric tube is seen with side port in the stomach. Left central venous catheter is seen with the tip in the superior vena cava. There is no pneumothorax. IMPRESSION: Left central venous catheter with the tip in the superior vena cava. No pneumothorax. <Electronically signed by Travon Salas > 11/23/20 [id number]
--- NOTE | 2020-11-23 16:12 | ROOPDOC ---
[facility] Report Of Operation Report of Operation DATE OF PROCEDURE: 11/23/20 PROCEDURE PERFORMED: Left subclavian central line insertion. PREPROCEDURE DIAGNOSES: Cardiogenic shock. POSTPROCEDURE DIAGNOSES: Cardiogenic shock. SURGEON: Dr Eduardo MD ANESTHESIA: Local lidocaine 1%. ESTIMATED BLOOD LOSS: Approximately 1 mL. COMPLICATIONS: None. DESCRIPTION OF PROCEDURE: Procedure consent was obtained from daughter over the phone, explaining risks an d benefits. A time out was performed. My hands were washed immediately prior to the procedure. I wore a surgical cap, mask with protective eyewear, sterile gown and sterile gloves throughout the procedure. The patient was placed in Trendelenburg position. The left chest region was prepped using chlorhexidine scrub and draped in sterile fashion using a full drape and sterile probe cover and sterile gel employed. Anesthesia was achieved with 1% lidocaine. The introducer needle was inserted approximately two centimeters lateral to and 1 cm inferior to the normal curvature of the patient's clavicle. Venous blood was withdrawn. The syringe was removed and a guidewire was advanced into the introducer needle. A small incision was made at the skin surface with a scalpel and the introducer needle was exchanged for a dilator over the guidewire. After appropriate dilation was obtained, the dilator was exchanged over the wire for a triple lumen central venous catheter. The wire was removed and the catheter was sutured in place at 17 cm. A sterile sorbaview shield was placed over the catheter at the insertion site. The patient tolerated the procedure without any hemodynamic compromise. At time of procedure completion, all ports aspirated and flushed properly. Post-procedure chest x-ray shows line tip is in distal SVC and there's no pneumothorax. Estimaged blood loss is 1cc. LUISITO JOHNSON MD Nov 23, 2020 16:12
[2020-11-23] MEDS ORDERED: MIDAZOLAM INJ 2MG/2ML VIAL (J2250 PER 1MG) As Ordered ONE (17:37)
--- NOTE | 2020-11-23 18:24 | REPVR ---
PROCEDURE INFORMATION: Exam: MR Head Without Contrast Exam date and time: 11/23/2020 5:42 PM Age: 65 years old Clinical indication: Coma or unconsciousness; Patient HX: PT completely unresponsive, on vent, full respiratory arrest, HX copd and high BP, PT was found down and unresponsive >24 hours; Additional info: Suspected stroke TECHNIQUE: Imaging protocol: MR of the head without contrast. COMPARISON: CT Head without contrast 11/21/2020 8:25 AM FINDINGS: Limitations: Motion artifact degrades the images. Brain: Moderate chronic microvascular ischemic changes. No acute infarct. Cerebral ventricles: Normal. No ventriculomegaly. Bones/joints: Unremarkable. Paranasal sinuses: Normal as visualized. No acute sinusitis. Mastoid air cells: Normal as visualized. No mastoid effusion. Orbital cavity: Unremarkable. Soft tissues: Unremarkable. Other findings: No hemorrhage. IMPRESSION: No acute intracranial abnormality. Electronically signed by: Marcelo Colbert On 11/23/2020 18:24:04 PM
[2020-11-23] MEDS: ESCITALOPRAM OXALATE 5MG TABLET (LEXAPRO) NG SCH (20:39)
[2020-11-23] MEDS: METOPROLOL TART 50 MG TAB GT SCH (20:40)
[2020-11-24] VITALS (43 sets, daily range): BP systolic 80–138; BP diastolic 47–76
[2020-11-24 05:39] LABS: BASO % 0.1 % (0.0-1.0); HEMATOCRIT 46.3 % (36.0-47.0); HEMOGLOBIN 15.4 g/dl (12.0-15.5); LYMPH # 4.2 10^3/uL (1.5-5.0); LYMPH % 14.3 % (24.0-44.0); MEAN CORPUSCULAR HEMOGLOBIN 28.1 pg (27.0-33.0); MEAN CORPUSCULAR HGB CONC 33.3 g/dl (32.0-36.5); MEAN CORPUSCULAR VOLUME 84.5 fl (80.0-96.0); MONO # 4.1 10^3/uL (0.0-0.8); NEUTROPHILS % 70.9 % (36.0-66.0); PLATELET COUNT, AUTOMATED 329 10^3/uL (150-450); RED BLOOD COUNT 5.48 10^6/uL (4.00-5.40)
[2020-11-24 06:11] LABS: WHITE BLOOD COUNT 29.6 10^3/uL (4.0-10.0)
[2020-11-24 06:12] LABS: ALBUMIN 2.9 GM/DL (3.2-5.2); ALT/SGPT 15 U/L (12-78); BILIRUBIN,TOTAL 0.9 MG/DL (0.2-1.0); BLOOD UREA NITROGEN 33 MG/DL (7-18); CALCIUM LEVEL 8.4 MG/DL (8.8-10.2); CARBON DIOXIDE LEVEL 29 MEQ/L (21-32); CHLORIDE LEVEL 97 MEQ/L (98-107); CREATININE FOR GFR 0.92 MG/DL (0.55-1.30); GLOMERULAR FILTRATION RATE > 60.0 (>45); GLUCOSE, FASTING 139 MG/DL (70-100); PHOSPHORUS LEVEL 2.8 MG/DL (2.5-4.9); POTASSIUM SERUM 2.8 MEQ/L (3.5-5.1); SODIUM LEVEL 134 MEQ/L (136-145)
[2020-11-24] MEDS ORDERED: POTASSIUM CHLORIDE 10% LIQ 20 MEQ/15 ML UDC PO ONE (06:15)
[2020-11-24] MEDS ORDERED: KCL 20MEQ IN 100ML SWI (KRUN) 20 MEQ in IV 1 EA IV ONE ×2 (06:15)
[2020-11-24] MEDS: IPRATROPIUM 0.02% SOLN 0.5MG 2.5ML NEB NEB SCH ×2 (07:15→11:11)
[2020-11-24] MEDS: ALBUTEROL SULFATE 2.5 MG/0.5 ML INH NEB SOLN NEB SCH ×2 (07:15→11:11)
[2020-11-24] MEDS: propofoL 1,000 MG in IV 1 EA IV SCH (07:29)
[2020-11-24] MEDS: ENTRESTO 24-26MG TABLET (SACUBITRIL/VALSARTAN) PO SCH ×3 (08:22→21:00)
[2020-11-24] MEDS: PANTOPRAZOLE 40MG VIAL (C9113 PER 1) IV SCH (08:40)
[2020-11-24] MEDS: ENOXAPARIN 40MG/0.4ML SYRINGE (J1650 PER 10MG) SC SCH (08:41)
[2020-11-24] MEDS: ATORVASTATIN 20 MG TAB PO SCH (08:42)
[2020-11-24] MEDS: CHLORHEXIDINE GLUCONATE 0.12 % 15ML UDC (PERIDEX ORAL RINSE) MT SCH ×2 (08:42→20:33)
[2020-11-24] MEDS: ASPIRIN 81 MG CHEW TABLET NG SCH (08:43)
[2020-11-24] MEDS: METOPROLOL TART 50 MG TAB GT SCH (08:44)
[2020-11-24] MEDS ORDERED: dexmedeTOMidine 200 MCG in IV 1 EA IV SCH (09:15)
[2020-11-24 09:57] LABS: APPEARANCE, URINE HAZY (CLEAR); BACTERIA, URINE AUTO 1+ (NEGATIVE); BILIRUBIN, URINE AUTO NEGATIVE (NEGATIVE); BLOOD, URINE BLOOD NEGATIVE (NEGATIVE); COLOR, URINE AMBER (YELLOW); GLUCOSE, URINE (UA) AUTO NEGATIVE (NEGATIVE); KETONE, URINE AUTO NEGATIVE (NEGATIVE); LEUKOCYTE ESTERASE, URINE AUTO NEGATIVE (NEGATIVE); MUCUS, URINE SMALL (NEGATIVE); NITRITE, URINE AUTO NEGATIVE (NEGATIVE); PROTEIN, URINE AUTO 1+ mg/dL (NEGATIVE); RBC, URINE AUTO 26 /HPF (0-3); SPECIFIC GRAVITY URINE AUTO 1.031 (1.002-1.035); SQUAMOUS EPITHELIAL CELL UR AU 2 /HPF (0-6); UROBILINOGEN, URINE AUTO 0.2 mg/dL (0.0-2.0); WBC, URINE AUTO 5 /HPF (0-3)
--- NOTE | 2020-11-24 10:31 | IPNPDOC ---
Subjective Date Seen The patient was seen on 11/24/20. Subjective Chief Complaint/HPI Patient follow all commands this morning coming off sedation. She is moving all 4 extremities. She denies of pain General: Reports: ROS Unobtainable Objective Physical Examination General Exam: Positive: Alert, Cooperative, No Acute Distress Eye Exam: Negative: Sclera icteric ENT Exam: Positive: Atraumatic Neck Exam: Positive: Supple; Negative: JVD Chest Exam: Positive: Normal air movement Heart Exam: Positive: Tachycardic, Murmurs Abdomen Exam: Positive: Normal bowel sounds, Soft; Negative: Tenderness Extremity Exam: Negative: Clubbing, Cyanosis, Edema Skin Exam: Positive: Nl turgor and temperature; Negative: Rash Assessment /Plan Assessment This is a 65-year-old female with history of stress-induced cardiomyopathy, hypertension, hyperlipidemia, mild COPD, prior tobacco abuse, depression, chronic hypoxic respiratory failure on home oxygen who was brought into the EMS for shortness of breath. She was intubated for cardiogenic pulmonary edema and admitted to ICU. Plan/VTE VTE Prophylaxis Ordered?: Yes Plan #Acute hypoxic respiratory failure secondary to cardiogenic pulmonary edema -Currently intubated on mechanical ventilator setting respiratory rate 18, tidal volume 320 mL, PEEP 7, FiO2 21%. Dramatic improvement of her gas exchange immediately after positive pressure ventilation which strongly indicate that this is a cardiogenic pulmonary edema. She tolerated spontaneous breathing trial and following commands. She will be extubated today. #Cardiogenic pulmonary edema -She was previously on Lasix drip with good response to diuresis. She diuresed 3 L over 24 hours on admission. We will hold off further diuresis today as her gas exchange is very good and she appears euvolemic. We may consider restarting her on Lasix standing. #Metabolic encephalopathy -Intubated for airway protection. Daily sedation holiday. MRI of the brain did not show any evidence of acute stroke. By now she is completely awake and alert, following commands. #Lactic acidosis -Likely secondary to hypoxia. Lactate has normalized. #Leukocytosis with diarrhea -C. difficile PCR sent from stool sample. #Type II FL -Likely demand given no history of coronary artery disease on cardiac catheterization done little over a year ago. Repeat echo with estimated EF of 20 to 25%. There is a mild to moderate MR and TR. There is also significant AI. We will continue with aspirin, Lipitor, beta-braden. She has been started on Entresto by cardiology. We will continue with medical management. #Hypertension, hyperlipidemia, mild COPD not in exacerbation, depression -Restarted on her home medications. #Hypokalemia secondary to diuresis -Repleted DVT prophylaxis: Enoxaparin subcutaneous GI prophylaxis: Pantoprazole Diet: Tube feeding with Jevity 1.5 kcal/cc, speech and swallow eval when she is extubated. Critical care time excluding procedures is 45 minutes. Disposition [facility] care [facility] Vital Signs Date Time Temp Pulse Resp B/P (MAP) Pulse Ox O2 Delivery O2 Flow Rate FiO2 11/24/20 08:44 127 102/65 11/24/20 08:02 99.1 40 95 Ventilator 21 11/22/20 00:00 30.0 I&O- Last 24 Hours up to 6 AM 11/24/20 06:00 Intake Total 676.0 ml Output Total 510 ml Balance 166.0 ml Laboratory Data 24H LABS Laboratory Tests 2 11/23/20 12:20: Troponin I 0.65#H 11/24/20 05:24: Immature Granulocyte % (Auto) 0.7, Neutrophils (%) (Auto) 70.9H, Lymphocytes (%) (Auto) 14.3L, Monocytes (%) (Auto) 14.0H, Eosinophils (%) (Auto) 0.0, Basophils (%) (Auto) 0.1, Neutrophils # (Auto) 21.0H, Lymphocytes # (Auto) 4.2, Monocytes # (Auto) 4.1H, Eosinophils # (Auto) 0.0, Basophils # (Auto) 0.0, Nucleated Red Blood Cells % (auto) 0.0, Anion Gap 8, Glomerular Filtration Rate > 60.0, Calcium Level 8.4L, Phosphorus Level 2.8, Total Bilirubin 0.9, Aspartate Amino Transf (AST/SGOT) 19, Alanine Aminotransferase (ALT/SGPT) 15, Alkaline Phosphatase 85, Total Protein 7.0, Albumin 2.9L, Albumin/Globulin Ratio 0.7L 11/24/20 09:28: 11/24/20 09:29: Urine Color BHARATH, Urine Appearance HAZY, Urine pH 5.0, Urine Specific [place] 1.031, Urine Protein 1+H, Urine Glucose (Auto)(UA) NEGATIVE, Urine Ketones (Auto) NEGATIVE, Urine Blood NEGATIVE, Urine Nitrite NEGATIVE, Urine Bilirubin NEGATIVE, Urine Urobilinogen 0.2, Urine Leukocyte Esterase (Auto) NEGATIVE, Urine WBC (Auto) 5H, Urine RBC (Auto) 26H, Urine Hyaline Casts (Auto) 0, Urine Bacteria (Auto) 1+H, Urine Squamous Epithelial Cells 2, Urine Mucus (Auto) SMALL, Urine Sperm (Auto) CBC/BMP Laboratory Tests 11/24/20 05:24 Microbiology Microbiology 11/21/20 Respiratory Virus Panel (PCR) ([facility]) - Final, Complete 11/21/20 Blood Culture - Preliminary, Resulted No Growth after 72 hours. All specime... 11/21/20 Blood Culture - Preliminary, Resulted No Growth after 72 hours. All specime... LUISITO JOHNSON MD Nov 24, 2020 10:31
[2020-11-24 10:37] LABS: AMPHETAMINES LEVEL URINE NEGATIVE (NEGATIVE); BARBITURATES URINE NEGATIVE (NEGATIVE); BENZODIAZEPINES URINE POSITIVE (NEGATIVE); CANNABINOIDS URINE POSITIVE (NEGATIVE); COCAINE METABOLITE URINE NEGATIVE (NEGATIVE); METHADONE URINE NEGATIVE (NEGATIVE); OPIATES URINE NEGATIVE (NEGATIVE); PHENCYCLIDINE URINE NEGATIVE (NEGATIVE)
[2020-11-24 10:38] LABS: CLOSTRIDIUM DIFFICILE PCR NEGATIVE (NEGATIVE)
[2020-11-24 13:04] LABS: BLOOD UREA NITROGEN 37 MG/DL (7-18); CALCIUM LEVEL 8.6 MG/DL (8.8-10.2); CARBON DIOXIDE LEVEL 26 MEQ/L (21-32); CHLORIDE LEVEL 102 MEQ/L (98-107); CREATININE FOR GFR 0.93 MG/DL (0.55-1.30); GLOMERULAR FILTRATION RATE > 60.0 (>45); GLUCOSE, FASTING 119 MG/DL (70-100); POTASSIUM SERUM 3.6 MEQ/L (3.5-5.1); SODIUM LEVEL 135 MEQ/L (136-145)
[2020-11-24] MEDS: ACETAMINOPHEN TAB 650MG DOSE (2X325MG) PO PRN ×2 (13:34→23:38)
[2020-11-24] MEDS: MORPHINE 2 MG/ML 1ML VIAL (J2270) IV PRN ×2 (16:22→21:28)
[2020-11-24] MEDS: CIPROFLOXACIN 400 MG in IV 1 EA IV SCH (16:22)
[2020-11-24] MEDS: IPRATROPIUM HFA INHALER 12.9 GRAMS (ATROVENT HFA) INH SCH (19:37)
[2020-11-24] MEDS: ALBUTEROL 90 MCG/ACT 8GM HFA INHALER INH SCH (19:37)
[2020-11-24] MEDS: ESCITALOPRAM OXALATE 5MG TABLET (LEXAPRO) NG SCH (20:21)
[2020-11-24] MEDS: METOPROLOL TART 50 MG TAB PO SCH (21:00)
[2020-11-25] VITALS (22 sets, daily range): BP systolic 96–130; BP diastolic 50–69
[2020-11-25] MEDS: CIPROFLOXACIN 400 MG in IV 1 EA IV SCH ×2 (04:50→17:58)
[2020-11-25 05:00] LABS: BASO # 0.1 10^3/uL (0.0-0.2); BASO % 0.2 % (0.0-1.0); EOS # 0.1 10^3/uL (0.0-0.5); EOS % 0.2 % (0.0-3.0); HEMATOCRIT 40.8 % (36.0-47.0); LYMPH # 3.9 10^3/uL (1.5-5.0); LYMPH % 12.2 % (24.0-44.0); MEAN CORPUSCULAR HEMOGLOBIN 28.3 pg (27.0-33.0); MEAN CORPUSCULAR HGB CONC 32.8 g/dl (32.0-36.5); MEAN CORPUSCULAR VOLUME 86.3 fl (80.0-96.0); MONO # 2.7 10^3/uL (0.0-0.8); MONO % 8.5 % (2.0-8.0); NEUTROPHILS % 78.2 % (36.0-66.0); PLATELET COUNT, AUTOMATED 286 10^3/uL (150-450); RED BLOOD COUNT 4.73 10^6/uL (4.00-5.40)
[2020-11-25 05:07] LABS: HEMOGLOBIN 13.4 g/dl (12.0-15.5)
[2020-11-25 05:32] LABS: ALBUMIN 2.8 GM/DL (3.2-5.2); ALT/SGPT 18 U/L (12-78); BILIRUBIN,TOTAL 0.8 MG/DL (0.2-1.0); BLOOD UREA NITROGEN 32 MG/DL (7-18); CALCIUM LEVEL 8.4 MG/DL (8.8-10.2); CARBON DIOXIDE LEVEL 27 MEQ/L (21-32); CHLORIDE LEVEL 101 MEQ/L (98-107); CREATININE FOR GFR 0.81 MG/DL (0.55-1.30); GLOMERULAR FILTRATION RATE > 60.0 (>45); GLUCOSE, FASTING 110 MG/DL (70-100); POTASSIUM SERUM 3.3 MEQ/L (3.5-5.1); SODIUM LEVEL 136 MEQ/L (136-145); TOTAL PROTEIN 6.1 GM/DL (6.4-8.2)
[2020-11-25] MEDS: ALBUTEROL 90 MCG/ACT 8GM HFA INHALER INH SCH ×4 (07:47→20:07)
[2020-11-25] MEDS: IPRATROPIUM HFA INHALER 12.9 GRAMS (ATROVENT HFA) INH SCH ×4 (07:47→20:07)
[2020-11-25] MEDS: ASPIRIN 81 MG CHEW TABLET NG SCH (08:12)
[2020-11-25] MEDS: ENTRESTO 24-26MG TABLET (SACUBITRIL/VALSARTAN) PO SCH ×2 (08:12→21:04)
[2020-11-25] MEDS: ENOXAPARIN 40MG/0.4ML SYRINGE (J1650 PER 10MG) SC SCH (08:13)
[2020-11-25] MEDS: ATORVASTATIN 20 MG TAB PO SCH (08:13)
[2020-11-25] MEDS: METOPROLOL TART 50 MG TAB PO SCH ×2 (08:15→21:05)
[2020-11-25] MEDS ORDERED: FUROSEMIDE 20 MG TAB PO SCH (09:00)
[2020-11-25] MEDS: MORPHINE 2 MG/ML 1ML VIAL (J2270) IV PRN ×3 (09:50→17:59)
--- NOTE | 2020-11-25 11:51 | IPNPDOC ---
Subjective Date Seen The patient was seen on 11/25/20. Subjective Chief Complaint/HPI Planing of diarrhea today. She denies her stool. She denies of shortness of breath, fever, chills, palpitation, chest pain. General: Denies: Chills Constitutional: Denies: Chills, Fever Eyes: Reports: Pain ENT: Denies: Head Aches Skin: Denies: Rash Pulmonary: Denies: Dyspnea, Cough, Pleuritic Chest Pain Cardiovascular: Denies: Chest Pain, Palpitations, Orthopnea Gastrointestinal: Reports: Abdominal Pain, Diarrhea; Denies: Nausea, Vomiting, Constipation Objective Physical Examination General Exam: Positive: Alert, Cooperative, No Acute Distress Eye Exam: Negative: Sclera icteric ENT Exam: Positive: Atraumatic Neck Exam: Positive: Supple; Negative: JVD Chest Exam: Positive: Normal air movement Heart Exam: Positive: Rate Normal, Murmurs Abdomen Exam: Positive: BS Hyperactive, Soft, Tenderness, Other (Negative Barkley or rebound tenderness) Extremity Exam: Negative: Clubbing, Cyanosis, Edema Skin Exam: Positive: Nl turgor and temperature; Negative: Rash Neuro Exam: Positive: Normal Speech, Cranial Nerves 3-12 NL Psych Exam: Positive: Mental status NL, Oriented x 3 Assessment /Plan Assessment This is a 65-year-old female with history of stress-induced cardiomyopathy, hypertension, hyperlipidemia, mild COPD, prior tobacco abuse, depression, chronic hypoxic respiratory failure on home oxygen who was brought into the EMS for shortness of breath. She was intubated for cardiogenic pulmonary edema and admitted to ICU. Plan/VTE VTE Prophylaxis Ordered?: Yes Plan #Acute hypoxic respiratory failure secondary to cardiogenic pulmonary edema -Patient was extubated yesterday and currently on 2 L of oxygen nasal cannula. She is saturating 97%. She is currently on aspirin, Entresto, beta-braden, and Lipitor. We are currently holding Lasix in the setting of watery diarrhea. She appears euvolemic. #Cardiogenic pulmonary edema -She is currently on aspirin, Entresto, beta-braden, and Lipitor. We are currently holding Lasix in the setting of watery diarrhea. She appears euvolemic. #Metabolic encephalopathy -Resolved. Likely hypoactive ICU delirium. Extensive work-up including MRI of the brain was negative for intracranial hemorrhage or acute ischemic stroke. #Lactic acidosis -Likely secondary to hypoxia. Lactate has normalized. #Leukocytosis with diarrhea -C. difficile PCR was negative. Other differential include opioid withdrawal as patient is chronically on opioid. Stool sample was also sent for other infectious etiology. Patient is currently on ciprofloxacin for abnormal u rinalysis which may not even be urinary tract infection. #Type II OK -Likely demand given no history of coronary artery disease on cardiac catheterization done little over a year ago. Repeat echo with estimated EF of 20 to 25%. There is a mild to moderate MR and TR. There is also significant AI. We will continue with aspirin, Lipitor, beta-braden. She has been started on Entresto by cardiology. We will continue with medical management. #Hypertension, hyperlipidemia, mild COPD not in exacerbation, depression -Restarted on her home medications. #Hypokalemia secondary to diuresis -Repleted DVT prophylaxis: Enoxaparin subcutaneous GI prophylaxis: Not indicated Diet: Advancing to regular diet. She should not be on fluid restriction at this point as she appears euvolemic and she is having diarrhea. Disposition Transfer out of ICU to [facility] with telemetry. VS, I&O, 24H, [facility] Vital Signs/I&O Vital Signs Date Time Temp Pulse Resp B/P (MAP) Pulse Ox O2 Delivery O2 Flow Rate FiO2 11/25/20 09:50 74 27 113/54 95 Nasal Cannula 2.0 11/25/20 04:00 97.5 11/24/20 11:00 28 I&O- Last 24 Hours up to 6 AM 11/25/20 06:00 Intake Total 510 ml Output Total 535 ml Balance -25 ml Laboratory Data 24H LABS Laboratory Tests 2 11/24/20 12:18: Anion Gap 7L, Glomerular Filtration Rate > 60.0, Calcium Level 8.6L 11/25/20 04:37: Anion Gap 8, Glomerular Filtration Rate > 60.0, Calcium Level 8.4L, Immature Granulocyte % (Auto) 0.7, Neutrophils (%) (Auto) 78.2H, Lymphocytes (%) (Auto) 12.2L, Monocytes (%) (Auto) 8.5H, Eosinophils (%) (Auto) 0.2, Basophils (%) (Auto) 0.2, Neutrophils # (Auto) 25.0H, Lymphocytes # (Auto) 3.9, Monocytes # (Auto) 2.7H, Eosinophils # (Auto) 0.1, Basophils # (Auto) 0.1, Nucleated Red Blood Cells % (auto) 0.0, Total Bilirubin 0.8, Aspartate Amino Transf (AST/SGOT) 28, Alanine Aminotransferase (ALT/SGPT) 18, Alkaline Phosphatase 86, Total Prote in 6.1L, Albumin 2.8L, Albumin/Globulin Ratio 0.8L CBC/BMP Laboratory Tests 11/24/20 12:18 11/25/20 04:37 Microbiology Microbiology 11/21/20 Respiratory Virus Panel (PCR) ([facility]) - Final, Complete 11/21/20 Blood Culture - Preliminary, Resulted No Growth after 72 hours. All specime... 11/21/20 Blood Culture - Preliminary, Resulted No Growth after 72 hours. All specime... LUISITO JOHNSON MD Nov 25, 2020 11:51
[2020-11-25] MEDS: LACTOBACILLUS ACIDOPHILUS CAP (BACID) PO SCH (12:29)
[2020-11-25 12:43] LABS: MAGNESIUM LEVEL 2.8 MG/DL (1.8-2.4)
--- NOTE | 2020-11-25 13:15 | IPNPDOC ---
Text Note Date of Service The patient was seen on 11/25/20. NOTE SUBJECTIVE: Ms. Kelsey is a 65-year-old female with a h/o acute hypoxic respiratory failure and cardiogenic pulmonary edema presenting with leukocytosis and diarrhea. She reports 3 episodes of diarrhea with epigastric abdominal pain. She rates the pain 8/10. She experiences nausea and bilious vomit. She also says she is short of breath at rest and it worsens with exertion. She feels depressed because she has been in the hospital for so long and misses her family. She denies fever, chills, chest pain, palpitations, hemoptysis, and constipation. OBJECTIVE: VITALS: Please see below. PHYSICAL EXAM: GENERAL: Patient is a thin female who appears older than stated age. She is in mild distress. HEENT: NC, AT. EOMI. PERRLA. Mucus membranes moist. CARDIOVASCULAR: RRR. Rumbling 2/6 murmur heard on auscultation. No rubs or gallops. 2+ radial pulses bilaterally. RESPIRATORY: Clear to auscultation bilaterally. No wheezes, rales, or rhonchi. ABDOMEN: Bowel sounds present. Tender to palpation in epigastric region. MUSCULOSKELETAL: Sensation intact bilaterally upper and lower extremities. Strength 4/5 in right upper extremity, 5/5 in left upper extremity, 3/5 in bilateral lower extremity. SKIN: No open wounds, excoriations, or ecchymoses. NEUROLOGIC: A&O X3. PSYCH: Mood is depressed. ASSESSMENT/PLAN: Ms. Kelsey is a 65-year-old female with a h/o acute hypoxic respiratory failure 2/2 cardiogenic pulmonary edema, cardiogenic pulmonary edema, acute systolic diastolic HFrEF, leukocytosis, metabolic encephalopathy, lactic acidosis, hypokalemia 2/2 diuresis, type II NV, HTN, hyperlipidemia, COPD, and depression now presenting with leukocytosis, nausea, vomiting, and diarrhea. # Acute hypoxic respiratory failure 2/2 cardiogenic pulmonary edema - Patient has a h/o chronic hypoxic respiratory failure with home oxygen. - Patient is on 2 L of oxygen nasal cannula in no acute distress - Continue on aspirin, Entresto, metoprolol, and Lipitor. - Continue albuterol and ipratropium inhalers. - Holding Lasix 2/2 diarrhea; patient appears euvolemic. # Cardiogenic pulmonary edema - Continue on aspirin, Entresto, metoprolol, and Lipitor. - Holding Lasix 2/2 diarrhea; patient appears euvolemic. # Acute systolic diastolic heart failure with reduced ejection fraction - 11/21/20 Echocardiogram showed left ventricular systolic dysfunction with global hypokinesis, features of grade 2 left ventricular diastolic dysfunction, and reduced ejection fraction 20-25%. - Continue aspirin, metoprolol, Lipitor, and Entresto. # Leukocytosis - 11/21/20 Preliminary blood cultures show gram positive rods. Repeat blood cultures ordered. - Continue with IV Ciprofloxacin. # Diarrhea - Patient is a chronic opioid user; diarrhea may be 2/2 opioid withdrawal. - C. difficile PCR negative. - Pending stool polys and ova parasite conventional. - Stool sample sent for other infectious etiology. - Lasix held. - Continue IV ciprofloxacin. - Mg levels ordered. - Lactobacillus acidophilus ordered. # Metabolic encephalopathy - Resolved. - Patient is A&O X3. # Lactic acidosis - Resolved; lactate normalized. # Type II NV - Patient has no h/o CAD on cardiac catheterization done 1 year ago. - Continue aspirin, metoprolol, Lipitor, Entresto; Entresto was started on 11/23/20 per cardiology recommendations. # Hypokalemia 2/2 diuresis - Improving. - Will repeat and monitor BMP levels. # Hypertension - Continue home metoprolol. # Hyperlipidemia - Continue home Lipitor. # Mild COPD - Continue home ipratropium and albuterol inhalers. # Depression - Continue home escitalopram. DVT prophylaxis: Lovenox 40mg SC VS,Fishbone, I+O VS, Fishbone, I+O Laboratory Tests 11/25/20 04:37 Vital Signs Date Time Temp Pulse Resp B/P (MAP) Pulse Ox O2 Delivery O2 Flow Rate FiO2 11/25/20 10:00 19 11/25/20 09:50 74 113/54 95 Nasal Cannula 2.0 11/25/20 04:00 97.5 11/24/20 11:00 28 I&O- Last 24 Hours up to 6 AM 11/25/20 06:00 Intake Total 510 ml Output Total 535 ml Balance -25 ml GME ATTESTATION GME ATTESTATION My faculty preceptor for this patient encounter was physically present during the encounter and was fully available. All aspects of the patient interview, examination, medical decision making process, and medical care plan development were reviewed and approved by the faculty preceptor. The faculty preceptor is aware and concurs with the plan as stated in the body of this note and will attest to such by his/her cosignature. ATTENDING NOTE I, Nova Hooks MD, have independently examined this patient and performed my own physical exam, as well as reviewed the documentation and edited where necessary. I have discussed in detail with the resident / student the findings and plan of treatment as documented by the resident / student and edited their note. I agree with their findings and treatment plan and have edited their documentation. LION CARDENAS OMS-3 Nov 25, 2020 13:15 Ariane Doan DO Nov 25, 2020 17:53 NOVA HOOKS MD Nov 28, 2020 14:43
[2020-11-25] MEDS ORDERED: LORazepam 0.5 MG TAB PO ONE ×2 (17:15→21:00)
[2020-11-25] MEDS ORDERED: ESCITALOPRAM OXALATE 5MG TABLET (LEXAPRO) PO SCH (21:00)
[2020-11-26 02:00] VITALS: BP 99/56
[2020-11-26] MEDS: CIPROFLOXACIN 400 MG in IV 1 EA IV SCH (04:52)
[2020-11-26 05:05] LABS: BASO # 0.1 10^3/uL (0.0-0.2); BASO % 0.2 % (0.0-1.0); EOS # 0.2 10^3/uL (0.0-0.5); EOS % 1.1 % (0.0-3.0); HEMATOCRIT 41.5 % (36.0-47.0); HEMOGLOBIN 13.7 g/dl (12.0-15.5); LYMPH # 3.6 10^3/uL (1.5-5.0); MEAN CORPUSCULAR HEMOGLOBIN 28.7 pg (27.0-33.0); MONO # 2.4 10^3/uL (0.0-0.8); MONO % 11.5 % (2.0-8.0); NEUTROPHILS # 14.6 10^3/uL (1.5-8.5); NEUTROPHILS % 69.4 % (36.0-66.0); PLATELET COUNT, AUTOMATED 348 10^3/uL (150-450); RED BLOOD COUNT 4.77 10^6/uL (4.00-5.40)
[2020-11-26 05:06] LABS: WHITE BLOOD COUNT 21.1 10^3/uL (4.0-10.0)
[2020-11-26 05:54] LABS: ALBUMIN 2.6 GM/DL (3.2-5.2); ALT/SGPT 28 U/L (12-78); BILIRUBIN,TOTAL 0.6 MG/DL (0.2-1.0); BLOOD UREA NITROGEN 20 MG/DL (7-18); CALCIUM LEVEL 8.3 MG/DL (8.8-10.2); CARBON DIOXIDE LEVEL 28 MEQ/L (21-32); CHLORIDE LEVEL 101 MEQ/L (98-107); CREATININE FOR GFR 0.66 MG/DL (0.55-1.30); GLOMERULAR FILTRATION RATE > 60.0 (>45); GLUCOSE, FASTING 99 MG/DL (70-100); POTASSIUM SERUM 3.3 MEQ/L (3.5-5.1); SODIUM LEVEL 137 MEQ/L (136-145); TOTAL PROTEIN 5.8 GM/DL (6.4-8.2)
[2020-11-26] MEDS: MORPHINE 2 MG/ML 1ML VIAL (J2270) IV PRN (06:08)
[2020-11-26] MEDS: ALBUTEROL 90 MCG/ACT 8GM HFA INHALER INH SCH ×2 (07:51→12:00)
[2020-11-26] MEDS: IPRATROPIUM HFA INHALER 12.9 GRAMS (ATROVENT HFA) INH SCH ×2 (07:51→12:00)
[2020-11-26 08:01] VITALS: BP 132/58
[2020-11-26 09:00] VITALS: BP 132/58
[2020-11-26] MEDS: METOPROLOL TART 50 MG TAB PO SCH (09:00)
[2020-11-26] MEDS: ENOXAPARIN 40MG/0.4ML SYRINGE (J1650 PER 10MG) SC SCH (09:00)
[2020-11-26] MEDS ORDERED: POTASSIUM CHLORIDE 10MEQ SR TABLET PO ONE (09:45)
[2020-11-26] MEDS: ATORVASTATIN 20 MG TAB PO SCH (10:02)
[2020-11-26] MEDS: ENTRESTO 24-26MG TABLET (SACUBITRIL/VALSARTAN) PO SCH (10:03)
[2020-11-26] MEDS: ASPIRIN 81 MG CHEW TABLET NG SCH (10:03)
[2020-11-26] MEDS: LACTOBACILLUS ACIDOPHILUS CAP (BACID) PO SCH (10:04)
[2020-11-26 11:56] VITALS: BP 132/58
[2020-11-26] MEDS ORDERED: NEOM28OI TOP (12:25)
[2020-11-26] MEDS ORDERED: RISATAB3 PO (12:25)
[2020-11-26] MEDS ORDERED: LOPR1TAB6 PO (12:25)
[2020-11-26] MEDS ORDERED: ENTR1TAB PO (12:25)
[2020-11-26] MEDS ORDERED: CIPR250T3 PO ×2 (12:29→18:11)
[2020-11-26 12:30] LABS: MAGNESIUM LEVEL 2.3 MG/DL (1.8-2.4)
[2020-11-26] MEDS ORDERED: LASI20TA3 PO (12:31)
[2020-11-26] MEDS ORDERED: NEOSPORIN TOP OINT 15GM TOP SCH (14:00)
--- NOTE | 2020-11-26 15:37 | REP ---
INDICATION: RUE hematoma, pain, and nodule. R/o thrombophlebitis. COMPARISON: None. TECHNIQUE: Real-time time sonographic evaluation of right forearm performed in the region of bruising and lump. FINDINGS: There is a hypoechoic area in the anterior right forearm mid to distal aspect, at the site of bruising and lump. This area measures 1.4 x 0.4 x 1.2 cm. This probably represents a hematoma. IMPRESSION: Probable hematoma at the site of the palpable abnormality and bruising, 1.4 x 0.4 x 1.2 cm. <Electronically signed by Travon Salas > 11/26/20 [id number]
[2020-11-26] MEDS ORDERED: SULF1TAB23 PO (18:09)
--- NOTE | 2020-11-26 18:42 | DS.PDOC ---
Discharge Summary General Date of Admission Nov 21, 2020 at 09:23 Date of Discharge November 26, 2020 Attending Physician: NOVA BURCH MD Discharge Summary PROCEDURES PERFORMED DURING STAY: Intubation; Extubation ADMITTING DIAGNOSES: - Acute hypoxic respiratory failure 2/2 cardiogenic pulmonary edema - Cardiogenic pulmonary edema - Hypoxic encephalopathy - Lactic acidosis - Elevated troponin with no significant EKG change - Hypertension, hyperlipidemia, mild COPD not in exacerbation, depression DISCHARGE DIAGNOSES: - Acute hypoxic respiratory failure secondary to cardiogenic pulmonary edema - Cardiogenic pulmonary edema - Acute systolic diastolic HFrEF - Leukocytosis - Diarrhea - Type II CO - Hypokalemia - Hypertension, hyperlipidemia, mild COPD not in exacerbation, depression COMPLICATIONS/CHIEF COMPLAINT: Shortness of breath. HISTORY OF PRESENT ILLNESS: Ms. Kelsey is a 65-year-old female with past medical history included stress- induced cardiomyopathy, chronic hypoxic respiratory failure on home oxygen, HTN, hyperlipidemia, mild COPD, prior tobacco abuse, and depression arrived in the ED on 11/21/20 with SOB and found to be profoundly hypoxic with AMS. ABG showed large AA gradient. Dr. Clark reading assistant was consulted. The patient was emergently intubated. The patient showed dramatic improvement with gas exchange with positive pressure ventilation, which showed strong indications for cardiogenic pulmonary edema. In the ED, the patient was found to have slight leukocytosis with no bandemia, proBNP at 1000, elevated lactic acid, and slightly elevated troponin. EKG showed LVH but no ST-T wave changes or evidence of LBBB. She was admitted to ICU for acute hypoxic respiratory failure 2/2 cardiogenic pulmonary edema, cardiogenic pulmonary edema, hypoxic encephalopathy, lactic acidosis and elevated troponin. HOSPITAL COURSE: In the ICU, the patient was intubated on ventilator settings managed by Dr. Clark reading assistant. Her gas exchanged continued to improved with positive pressure ventilation. She was managed with diuresis and electrolyte repletion. Her home medications were continued for HTN, hyperlipidemia, mild COPD not in exacerbation, depression. She was extubated on 11/24/20 without complications. She was on 2L NC and saturating at 97%. She began tube feeding with Jevity due to aspiration precautions. Troponin continued to downtrend. Acute hypoxic respiratory failure 2/2 cardiogenic pulmonary edema, encephalopathy and lactic acidosis resolved. Cardiology was consulted due to elevated troponin, cardiogenic pulmonary edema, h/o recurrent episodes of stress-induced cardiomyopathy, h/o of HFrEF, and evidence of type II CO. Per cardiology recommendations, she was discontinued on amlodipine, continued on home lisinopril, and started on Entresto. The patient was stepped down from ICU. She had acute complaints of diarrhea and epigastric abdominal pain with leukocytosis. The patient also had a h/o chronic opioid use and there was concern for opioid withdrawal symptoms. Lasix was held due to diarrhea. C. diff was negative. She was given IV ciprofloxacin and lactobacillus acidophilus. The following day, her abdominal pain had improved and reduced diarrhea. Her leukocytosis continued to down-trend. Her appetite and bilateral upper and lower extremity increased. She was able to sit up from bed for meals and walk in her room. Blood cultures returned with gram positive cocci. She was prescribed sulfamethoxazole/trimethoprim for 3 days. Patient noticed a small nodule on right ventral forearm. Right extremity US showed probably hematoma. Patient should follow up outpatient with PCP if hematoma worsens or does not resolve on its own. DISCHARGE MEDICATIONS: Please see below. ALLERGIES: Please see below. PHYSICAL EXAMINATION ON DISCHARGE: VITALS: Please see below. PHYSICAL EXAM: GENERAL: Patient is a thin female who appears older than stated age. She is not in acute distress. HEENT: NC, AT. EOMI. PERRLA. Mucus membranes moist. CARDIOVASCULAR: RRR. Rumbling 2/6 murmur heard on auscultation. No rubs or gallops. 2+ radial pulses bilaterally. RESPIRATORY: Clear to auscultation bilaterally. No wheezes, rales, or rhonchi. ABDOMEN: Bowel sounds present. Non-tender to palpation in all 4 quadrants. MUSCULOSKELETAL: Sensation intact bilaterally upper and lower extremities. Strength 5/5 in bilateral upper and lower extremities. SKIN: No open wounds or excoriations. Small nodule present in right ventral forearm, firm and non-tender to palpation. NEUROLOGIC: A&O X3. CN II-XII grossly intact. PSYCH: Mood is stable. She is excited to reunited with her family. LABORATORY DATA: Please see below. IMAGIN11/21/20 Chest X-ray Impression: "Endotracheal and nasogastric tubes in place. Diffuse interstitial lung disease, fibrosis versus edema. No focal infiltrate." 11/21/20 CTA Chest Impression: "No CT evidence of pulmonary embolus. Diffuse moderate interstitial edema pattern, mild four-chamber cardiomegaly and findings consistent with right heart dysfunction. Question CHF. Two small left upper lobe sub cm ill-defined nodules." 11/21/20 CT Cervical Spine Impression: "Multilevel ventral cervical spine fusion, C3 through C7. Dorsal cervicothoracic fusion bilaterally C2 through T5. Cervical laminectomies at each level from C3 through C7. No traumatic abnormality seen." 11/21/20 CT Head w/o Contrast Impression: "Mild atrophy and probable chronic periventricular small vessel ischemic change/gliosis. No acute intracranial hemorrhage, midline shift or mass effect." 11/23/20 Brain MRI Impression: "No acute intracranial abnormality." 11/23/20 Chest X-ray Impression: "Left central venous catheter with the tip in the superior vena cava. No pneumothorax." 11/26/20 Right Upper Extremity US Impression: "Probable hematoma at the site of the palpable abnormality and bruising, 1.4 x 0.4 x 1.2 cm." PROGNOSIS: Fair. ACTIVITY: As tolerated. DIET: As tolerated. DISPOSITION: Home with services. DISCHARGE INSTRUCTIONS: - Please take new prescription oral sulfamethoxazole/trimethoprim 800mg-160mg BID for 3 days for gram positive cocci. - Please take new prescription Cha-Bid caplet for diarrhea. - Please take new prescription for Lasix 20mg/48hrs for HFrEF. - Please take new prescription Entresto 24mg-26mg BID per cardiology recommendations for elevated troponin, cardiogenic pulmonary edema, h/o recurrent episodes of stress-induced cardiomyopathy, h/o of HFrEF, and type II CO. - Please continue all home medications for stress-induced cardiomyopathy, chronic hypoxic respiratory failure on home oxygen, HTN, hyperlipidemia, mild COPD, depression, and chronic pain. - Please follow up with PCP in 2-3 days for leukocytosis, right forearm hematoma, chronic hypoxic respiratory failure on home oxygen, HTN, hyperlipidemia, mild COPD. - Please follow up cardiology in 2-3 days for elevated troponin, cardiogenic pulmonary edema, h/o recurrent episodes of stress-induced cardiomyopathy, h/o of HFrEF, and type II CO. Repeat echocardiogram is recommended in 4-8 weeks. - Please return to the hospital if symptoms worsen or if experiencing new symptoms. ITEMS TO FOLLOWUP ON ON OUTPATIENT: - Stress-induced cardiomyopathy - Chronic hypoxic respiratory failure - Cardiogenic pulmonary edema - Systolic diastolic HFrEF - Type II CO - Leukocytosis - Diarrhea - Hypokalemia 2/2 diuresis - Right forearm hematoma - Chronic opioid use DISCHARGE CONDITION: Stable. TIME SPENT ON DISCHARGE: 40 minutes. Of note her preliminary blood culture returned to be 1. Gram positive cocci in pairs and chains. 2. Gram positive rods with no growth after 5 days. Patient's discharge medication antibiotics was switched from Ciprofloxacin to TMP-SMX fr gram positive cocci coverage. Confirmed with [facility] pharmacy that the patient has not picked up the Ciprofloxacin and the Ciprofloxacin will not be dispensed as patient will be getting the sulfamethoxazole/trimethoprim instead. Vital Signs/I&Os Vital Signs Date Time Temp Pulse Resp B/P (MAP) Pulse Ox O2 Delivery O2 Flow Rate FiO2 11/26/20 11:56 98.1 73 18 132/58 (82) 95 Room Air 11/25/20 14:24 2.0 11/24/20 11:00 28 I&O- Last 24 Hours up to 6 AM 11/26/20 06:00 Intake Total 900 ml Output Total 1275 ml Balance -375 ml Laboratory Data Labs 24H Laboratory Tests 2 11/26/20 04:46: Immature Granulocyte % (Auto) 0.8, Neutrophils (%) (Auto) 69.4H, Lymphocytes (%) (Auto) 17.0L, Monocytes (%) (Auto) 11.5H, Eosinophils (%) (Auto) 1.1, Basophils (%) (Auto) 0.2, Neutrophils # (Auto) 14.6H, Lymphocytes # (Auto) 3.6, Monocytes # (Auto) 2.4H, Eosinophils # (Auto) 0.2, Basophils # (Auto) 0.1, Nucleated Red Blood Cells % (auto) 0.0, Anion Gap 8, Glomerular Filtration Rate > 60.0, Calcium Level 8.3L, Magnesium Level 2.3, Total Bilirubin 0.6, Aspartate Amino Transf (AST/SGOT) 41H, Alanine Aminotransferase (ALT/SGPT) 28, Alkaline Phosphatase 87, Total Protein 5.8L, Albumin 2.6L, Albumin/Globulin Ratio 0.8L CBC/BMP Laboratory Tests 11/26/20 04:46 Microbiology Microbiology 11/25/20 Blood Culture - Preliminary, Resulted No growth after 24 hours . All specim... 11/25/20 Blood Culture - Preliminary, Resulted No growth after 24 hours . All specim... 11/21/20 Respiratory Virus Panel (PCR) ([facility]) - Final, Complete 11/21/20 Blood Culture - Preliminary, Resulted 11/21/20 Blood Culture - Final, Complete NO GROWTH AFTER 5 DAYS Discharge Medications Scheduled Amlodipine Besylate (Amlodipine Besylate) 5 Mg Tablet, 2.5 MG PO DAILY, (Reported) Ascorbic Acid (C-1000) 1,000 Mg Tablet, 1,000 MG PO DAILY, (Reported) Aspirin (Aspirin EC) 81 Mg Tablet.dr, 81 MG PO DAILY, (Reported) Atorvastatin Calcium (Atorvastatin Calcium) 20 Mg Tablet, 20 MG PO DAILY, (Reported) Calcium Carbonate (Calcium) 600 Mg Tablet, 600 MG PO DAILY, (Reported) Cholecalciferol (Vitamin D3) (Vitamin D3) 50 Mcg Capsule, 50 MCG PO DAILY, (Reported) Ciprofloxacin HCl (Ciprofloxacin HCl) 250 Mg Tablet, 1 TAB PO BID Please do not take this medication. Please take the sulfametho xazole/trimethoprim instead. Thank you Clopidogrel Bisulfate (Clopidogrel) 75 Mg Tablet, 75 MG PO DAILY, (Reported) Escitalopram Oxalate (Lexapro) 5 Mg Tablet, 5 MG PO DAILY, (Reported) Fluticasone Propion/Salmeterol (Advair Hfa 230-21 Mcg Inhaler) 12 Gm Hfa.aer.ad, 2 PUFF INH BID, (Reported) Folic Acid (Folic Acid) 1 Mg Tablet, 1 MG PO DAILY, (Reported) Furosemide (Lasix) 20 Mg Tablet, 20 MG PO Q48H Gabapentin (Gabapentin) 100 Mg Capsule, 100 MG PO BID, (Reported) L.acidoph/L.bulg/B.bif/S.therm (Cha-Bid Caplet) 1 Each Tablet, 1 EA PO DAILY Lisinopril (Lisinopril) 40 Mg Tablet, 40 MG PO DAILY, (Reported) Magnesium Gluconate (Magnesium Gluconate) 27 Mg Tablet, 27 MG PO DAILY, (Reported) Metoprolol Tartrate (Lopressor) 50 Mg Tablet, 50 MG PO BID Neomycin/Bacitracin/Polymyxinb (Triple Antibiotic Ointment) 28 Gm Oint...g., 0 DOSE TOP Q8H Omeprazole (Omeprazole) 40 Mg Capsule.dr, 40 MG PO DAILY, (Reported) Potassium Chloride (Potassium Chloride) 20 Meq Tablet.er, 20 MEQ PO DAILY, (Reported) Sacubitril/Valsartan (Entresto 24 mg-26 mg Tablet) 1 Each Tablet, 1 TAB PO BID Sulfamethoxazole/Trimethoprim (Sulfamethoxazole-Tmp Ds Tablet) 800 Mg-160 Mg Tablet, 1 TAB PO BID Umeclidinium [place] (Incruse Ellipta) 62.5 Mcg Blst.w.dev, 1 PUFF INH DAILY, (Reported) Varenicline Tartrate (Chantix) 1 Mg Tablet, 1 MG PO BID, (Reported) Scheduled PRN Albuterol Sulfate (Proair Hfa) 8.5 Gm Hfa.aer.ad, 2 PUFF INH QID PRN for SHORTNESS OF BREATH, (Reported) Aspirin/Acetaminophen/Caffeine (Excedrin Migraine Caplet) 1 Each Tablet, 1 TAB PO DAILY PRN for HEADACHE, (Reported) Fluticasone Propionate (Fluticasone Propionate) 16 Gm Thayer.susp, 1 SPRAY NARES DAILY PRN for ALLERGIES, (Reported) Loratadine (Claritin) 10 Mg Capsule, 10 MG PO DAILY PRN for ALLERGIES, (Reported) Lorazepam (Lorazepam) 1 Mg Tablet, 1 MG PO QHS PRN for INSOMNIA, (Reported) Ondansetron HCl (Ondansetron HCl) 4 Mg Tablet, 4 MG PO QID PRN for NAUSEA OR VOMITING, (Reported) Oxycodone Hcl (Oxycodone HCl) 20 Mg Tablet, 20 MG PO Q4H PRN for PAIN LEVEL 5- 10, (Reported) Allergies Coded Allergies: Cephalosporins (Verified Allergy, Intermediate, 11/21/20) Penicillins (Verified Allergy, Intermediate, 11/21/20) buspirone (Verified Allergy, Intermediate, 11/21/20) codeine (Verified Allergy, Intermediate, 11/21/20) GME ATTESTATION E ATTESTATION My faculty preceptor for this patient encounter was physically present during the encounter and was fully available. All aspects of the patient interview, examination, medical decision making process, and medical care plan development were reviewed and approved by the faculty preceptor. The faculty preceptor is aware and concurs with the plan as stated in the body of this note and will attest to such by his/her cosignature. GME ATTESTATION GME ATTESTATION My faculty preceptor for this patient encounter was physically present during the encounter and was fully available. All aspects of the patient interview, examination, medical decision making process, and medical care plan development were reviewed and approved by the faculty preceptor. The faculty preceptor is aware and concurs with the plan as stated in the body of this note and will attest to such by his/her cosignature. LION CARDENAS OMS-3 Nov 26, 2020 18:41 Ariane Doan DO Nov 26, 2020 18:47 ZURDO LOPEZ DO Nov 27, 2020 15:36
== END 2020-11-26 16:53 | disposition home or self-care (01) | DRG 208 ==
LOC: M ED 06:30 → M ED INP 09:23 → ENRESERV 11:45 → M PCU 12:27
PROVIDERS: ADMIT Internal Medicine Critical Care Medicine; ATTEND Internal Medicine
PROC: 5A1945Z Respiratory Ventilation, 24-96 Consecutive Hours (ICD-10-PCS; principal; 2020-11-21)
PROC: 0BH17EZ Insertion of Endotracheal Airway into Trachea, Via Natural or Artificial Opening (ICD-10-PCS; 2020-11-21)
PROC: 02HV33Z Insertion of Infusion Device into Superior Vena Cava, Percutaneous Approach (ICD-10-PCS; 2020-11-23)
DX: J96.21 Acute and chronic respiratory failure with hypoxia (principal); J81.0 Acute pulmonary edema; I21.A1 Myocardial infarction type 2; G93.41 Metabolic encephalopathy; I50.31 Acute diastolic (congestive) heart failure; E87.2 Acidosis; I51.81 Takotsubo syndrome; E78.5 Hyperlipidemia, unspecified; R19.7 Diarrhea, unspecified; E87.6 Hypokalemia; I11.0 Hypertensive heart disease with heart failure; J44.9 Chronic obstructive pulmonary disease, unspecified; F32.9 Major depressive disorder, single episode, unspecified; Z99.81 Dependence on supplemental oxygen; Z87.891 Personal history of nicotine dependence; M41.9 Scoliosis, unspecified; Z90.49 Acquired absence of other specified parts of digestive tract; Z79.02 Long term (current) use of antithrombotics/antiplatelets; Z79.899 Other long term (current) drug therapy; Z88.0 Allergy status to penicillin; Z88.1 Allergy status to other antibiotic agents; Z88.5 Allergy status to narcotic agent; Z88.8 Allergy status to other drugs, medicaments and biological substances